=== PATIENT | female | born 1985 | race Caucasian/White ===

== ENCOUNTER → 2017-03-24 | Outpatient (CLI) | payer OTHER ==
[~2017-03-24] MED LIST: MULT-506 PO
== END | disposition home or self-care (01) ==
LOC: C.PAPS 08:30
PROVIDERS: ATTEND Obstetrics & Gynecology
DX: Z34.01 Encounter for supervision of normal first pregnancy, first trimester (principal)

== ENCOUNTER → 2017-03-24 | Outpatient (CLI) | payer OTHER ==
[2017-03-24 17:23] LABS: BASO % 0.2 %; BASO ABS # 0.02 K/uL (0-0.2); COMPLETE YES; EOS % 0.9 %; HEMATOCRIT 39.5 % (37-47); IG% 0.2 %; LYMPH % 23.8 %; LYMPH ABS # 2.63 K/uL (1.2-3.4); MEAN CELL VOLUME 83.3 fL (80-100); MEAN CORPUSCULAR HEMOGLOBIN 28.5 pg (25-34); MEAN CORPUSCULAR HGB CONC 34.2 g/dl (32-36); MEAN PLATELET VOLUME 11.1 fL (7.4-10.4); MONO % 4.5 %; NEUT % 70.4 %; PLATELET COUNT 304 K/uL (130-400); RED BLOOD COUNT 4.74 M/uL (4.2-5.4); WHITE BLOOD COUNT 11.06 K/uL (4.8-10.8)
== END | disposition home or self-care (01) ==
LOC: UNMERGE 16:32 → C.LAB1850 16:32 → MERGE 16:32
PROVIDERS: ATTEND Obstetrics & Gynecology
DX: Z34.00 Encounter for supervision of normal first pregnancy, unspecified trimester (principal)

== ENCOUNTER → 2017-03-24 | Outpatient (CLI) | payer OTHER ==
[2017-03-24 18:16] LABS: URINE APPEARANCE CLEAR (CLEAR); URINE BILIRUBIN NEG (NEG); URINE COLOR YELLOW; URINE NITRITE NEG (NEG); URINE SPECIFIC GRAVITY 1.006 (1.000-1.030); UROBILINOGEN NEG (NEG)
[2017-03-24 18:18] LABS: MANUAL MICROSCOPIC REQUIRED? NO; REVIEW REQ? NO
[2017-03-26 15:25] LABS: CHLAMYDIA TRACH RNA*** NOT DETECTED (NOT DETECTED); GC (NEIS GONORRHOEAE)RNA** NOT DETECTED (NOT DETECTED)
== END | disposition home or self-care (01) ==
LOC: C.LABSPEC 17:52 → UNMERGE 17:52 → MERGE 17:52
PROVIDERS: ATTEND Obstetrics & Gynecology
DX: Z34.00 Encounter for supervision of normal first pregnancy, unspecified trimester (principal)

== ENCOUNTER → 2017-05-04 | Outpatient (CLI) | payer OTHER ==
[2017-05-04 15:22] LABS: BASO % 0.1 %; BASO ABS # 0.01 K/uL (0-0.2); COMPLETE YES; EOS % 0.6 %; HEMATOCRIT 36.3 % (37-47); IG% 0.1 %; LYMPH % 23.7 %; LYMPH ABS # 1.93 K/uL (1.2-3.4); MEAN CELL VOLUME 84.4 fL (80-100); MEAN CORPUSCULAR HEMOGLOBIN 29.3 pg (25-34); MEAN CORPUSCULAR HGB CONC 34.7 g/dl (32-36); MEAN PLATELET VOLUME 10.8 fL (7.4-10.4); MONO % 5.8 %; NEUT % 69.7 %; PLATELET COUNT 265 K/uL (130-400); WHITE BLOOD COUNT 8.16 K/uL (4.8-10.8)
== END | disposition home or self-care (01) ==
LOC: C.LAB1850 13:45
PROVIDERS: ATTEND Obstetrics & Gynecology
DX: O02.1 Missed abortion (principal)

== ENCOUNTER → 2017-05-13 | Outpatient (CLI) | payer OTHER | END | disposition home or self-care (01) | LOC: C.LAB1850 16:19 | PROVIDERS: ATTEND Obstetrics & Gynecology | DX: O02.1 Missed abortion (principal) ==

== ENCOUNTER 2017-05-29 13:55 | Emergency (ER) | payer OTHER ==
[~2017-05-29] VITALS: Ht 154.9 cm; Wt 57.3 kg
[2017-05-29 13:57] VITALS: TEMP 36.9; Ht 154.9 cm; Wt 57.3 kg
[2017-05-29] MEDS ORDERED: SODIUM CHLORIDE 0.9% 1000ML 1,000 ML IV STA (14:10)
[2017-05-29 14:30] LABS: BASO % 0.1 %; BASO ABS # 0.01 K/uL (0-0.2); COMPLETE YES; EOS % 0.9 %; HEMATOCRIT 38.8 % (37-47); IG% 0.1 %; LYMPH % 24.2 %; LYMPH ABS # 2.14 K/uL (1.2-3.4); MEAN CELL VOLUME 84.3 fL (80-100); MEAN CORPUSCULAR HEMOGLOBIN 29.3 pg (25-34); MEAN CORPUSCULAR HGB CONC 34.8 g/dl (32-36); MEAN PLATELET VOLUME 10.6 fL (7.4-10.4); NEUT % 67.7 %; PLATELET COUNT 278 K/uL (130-400); WHITE BLOOD COUNT 8.86 K/uL (4.8-10.8)
[2017-05-29] MEDS ORDERED: MULT-506 PO (14:35)
[2017-05-29 14:45] LABS: BUN/CREATININE RATIO 11.3 (10-20); CALCIUM 9.3 mg/dl (8.5-10.1); CREATININE 0.73 mg/dl (0.60-1.20); POTASSIUM 3.9 mmol/L (3.5-5.1)
--- NOTE | 2017-05-29 16:11 | DIAGNOSTIC IMAGING REPORT ---
PELVIC COMPLETE NON OB HISTORY: 31 years-old Female abnormal vaginal bleeding COMPARISON: Pelvic ultrasound 19/01/2017 TECHNIQUE: Multiple real-time sonography images of the deep pelvic structures were obtained transabdominally and transvaginally assessing grayscale appearance, color and spectral flow. FINDINGS: TRANSABDOMINAL: Anteflexed uterus measures 8.4 x 3.9 x 4.5 cm. The endometrium is slightly heterogeneous, 1.0 cm in thickness. Right ovary measures 2.4 x 3.5 x 1.7 cm with normal arterial inflow documented. TRANSVAGINAL: Uterus measures 8.4 x 4.5 x 5.4 cm. There is an ill-defined slightly hypoechoic lesion of the posterior left fundal uterus, 1.8 x 1.5 x 1.8 cm suggesting intramural leiomyoma. The endometrium is heterogeneous measuring up to 1.3 cm. No definite some mucosal fibroid is seen. Nabothian cyst incidentally noted. Right ovary measures 3.1 x 1.5 x 3.1 cm with normal arterial inflow documented. Left ovary is also unremarkable, 3.3 x 1.8 x 2.5 cm with arterial inflow documented. No significant free pelvic fluid identified. IMPRESSION: 1. Normal sonographic appearance of the ovaries without evidence of torsion. 2. Heterogeneous appearance of a non-thickened endometrium suggests underlying endometrial cavity blood products. 3. Intramural leiomyoma in the fundal uterus is seen measuring up to 1.8 cm. The above report was generated using voice recognition software. It may contain grammatical, syntax or spelling errors. Electronically signed by: Steve Marquez M.D. 05/29/2017 4:09 PM Dictated Date/Time: 05/29/2017 4:05 PM
[2017-05-29 17:20] VITALS: BP 111/69; PULSE 75; O2SAT 99
--- NOTE | 2017-05-29 17:22 | EMERGENCY ROOM VISIT NOTE ---
History First contact with patient: 14:00 Chief Complaint: ED VAG BLEEDING Stated Complaint: VAGINAL BLEEDING S/P MISCARRIAGE History of Present Illness The patient is a 31 year old female who presents to the Emergency Room with complaints of excessive vaginal bleeding. The patient states that she had a miscarriage one month ago. She is followed by mindy Riojas [facility]. She was placed on Cytotec. She had one round by mouth and then one round vaginally. States she states that she had excessive vaginal bleeding for 2 weeks followed by one week of light bleeding. Then today at 1 PM she felt a "gush" coming from her vagina and went to the bathroom and there was a large amount of bright red blood along with some clots. She states she inserted a tampon and the reoccurrence happened twice more. She contacted her [facility] and was told to come here. The patient does admit that she has had 2 ultrasounds since the miscarriage. She states on the second ultrasound they told her there was just endometrial thickening but did not see any additional contained material which they saw on the first one. She has been getting serial beta hCG she thinks her last one on was in the 160s. She denies any increased fatigue. The patient states she has not been sexually active since the miscarriage. Review of Systems 6 system review was performed and was negative unless stated otherwise in history of present illness. Social History Smoking Status: Never Smoker Current/Historical Medications Scheduled Multivitamin (Multivitamin), 1 TAB PO DAILY Physical Exam Vital Signs Date Time Temp Pulse Resp B/P (MAP) Pulse Ox O2 Delivery O2 Flow Rate FiO2 05/29/17 16:00 67 12 99/70 99 Room Air 05/29/17 13:57 36.9 84 18 137/89 98 Room Air Physical Exam GENERAL: 31-year-old white female appears in no acute distress. MENTAL Status: Alert and oriented 3. EYES: Conjunctiva slightly pale. MOUTH: Mucosa is moist NECK: Supple, no lymphadenopathy noted. No carotid bruits noted. LUNGS: Clear auscultation without wheezes rales or rhonchi. CARDIAC: Regular rate and rhythm without murmur. Pulses is full and equal throughout. BACK: No CVA tenderness noted. ABDOMEN: Positive bowel sounds all 4 quadrants. Soft, nontender to palpation without organomegaly or masses. EXTREMITIES: No cyanosis or edema noted. Medical Decision & Procedures ER Provider Diagnostic Interpretation: PELVIC COMPLETE NON OB HISTORY: 31 years-old Female abnormal vaginal bleeding COMPARISON: Pelvic ultrasound 19/01/2017 TECHNIQUE: Multiple real-time sonography images of the deep pelvic structures were obtained transabdominally and transvaginally assessing grayscale appearance, color and spectral flow. FINDINGS: TRANSABDOMINAL: Anteflexed uterus measures 8.4 x 3.9 x 4.5 cm. The endometrium is slightly heterogeneous, 1.0 cm in thickness. Right ovary measures 2.4 x 3.5 x 1.7 cm with normal arterial inflow documented. TRANSVAGINAL: Uterus measures 8.4 x 4.5 x 5.4 cm. There is an ill-defined slightly hypoechoic lesion of the posterior left fundal uterus, 1.8 x 1.5 x 1.8 cm suggesting intramural leiomyoma. The endometrium is heterogeneous measuring up to 1.3 cm. No definite some mucosal fibroid is seen. Nabothian cyst incidentally noted. Right ovary measures 3.1 x 1.5 x 3.1 cm with normal arterial inflow documented. Left ovary is also unremarkable, 3.3 x 1.8 x 2.5 cm with arterial inflow documented. No significant free pelvic fluid identified. IMPRESSION: 1. Normal sonographic appearance of the ovaries without evidence of torsion. 2. Heterogeneous appearance of a non-thickened endometrium suggests underlying endometrial cavity blood products. 3. Intramural leiomyoma in the fundal uterus is seen measuring up to 1.8 cm. The above report was generated using voice recognition software. It may contain grammatical, syntax or spelling errors. Electronically signed by: Steve Marquez M.D. 05/29/2017 4:09 PM Dictated Date/Time: 05/29/2017 4:05 PM Laboratory Results 05/29/17 14:20 Red Blood Count 4.60, Mean Corpuscular Volume 84.3, Mean Corpuscular Hemoglobin 29.3, Mean Corpuscular Hemoglobin Concent 34.8, Mean Platelet Volume 10.6, Neutrophils (%) (Auto) 67.7, Lymphocytes (%) (Auto) 24.2, Monocytes (%) (Auto) 7.0, Eosinophils (%) (Auto) 0.9, Basophils (%) (Auto) 0.1, Neutrophils # (Auto) 6.00, Lymphocytes # (Auto) 2.14, Monocytes # (Auto) 0.62, Eosinophils # (Auto) 0.08, Basophils # (Auto) 0.01 05/29/17 14:20 Test 05/29/17 14:20 White Blood Count 8.86 K/uL (4.8-10.8) Red Blood Count 4.60 M/uL (4.2-5.4) Hemoglobin 13.5 g/dL (12.0-16.0) Hematocrit 38.8 % (37-47) Mean Corpuscular Volume 84.3 fL (80-100) Mean Corpuscular Hemoglobin 29.3 pg (25-34) Mean Corpuscular Hemoglobin Concent 34.8 g/dl (32-36) Platelet Count 278 K/uL (130-400) Mean Platelet Volume 10.6 fL (7.4-10.4) Neutrophils (%) (Auto) 67.7 % Lymphocytes (%) (Auto) 24.2 % Monocytes (%) (Auto) 7.0 % Eosinophils (%) (Auto) 0.9 % Basophils (%) (Auto) 0.1 % Neutrophils # (Auto) 6.00 K/uL (1.4-6.5) Lymphocytes # (Auto) 2.14 K/uL (1.2-3.4) Monocytes # (Auto) 0.62 K/uL (0.11-0.59) Eosinophils # (Auto) 0.08 K/uL (0-0.5) Basophils # (Auto) 0.01 K/uL (0-0.2) RDW Standard Deviation 35.7 fL (36.4-46.3) RDW Coefficient of Variation 11.6 % (11.5-14.5) Immature Granulocyte % (Auto) 0.1 % Immature Granulocyte # (Auto) 0.01 K/uL (0.00-0.02) Anion Gap 5.0 mmol/L (3-11) Est Creatinine Clear Calc Drug Dose 83.4 ml/min Estimated GFR () 126.3 Estimated GFR (Non- 109.0 BUN/Creatinine Ratio 11.3 (10-20) Calcium Level 9.3 mg/dl (8.5-10.1) Human Chorionic Gonadotropin, Quant 69 mIU/mL Medications Administered Medications (Trade) Dose Ordered Sig/Izabel Route Start Time Stop Time Status Last Admin Dose Admin Sodium Chloride 1,000 ml @ 999 mls/hr Q1H1M STAT IV 05/29/17 14:10 05/29/17 15:10 DC 05/29/17 14:22 999 MLS/HR ED Course The patient was evaluated. The patient's EMR medication list were reviewed. IV access was obtained. The patient was given 1 L normal saline wide-open. CBC and differential, renal profile, quantitative beta hCG was ordered and was now in the 60s therefore it is dropping appropriately. Hemoglobin and hematocrit were normal.. Pelvic ultrasound was ordered by the radiologist as above without any evidence of retained products.. [facility]. [facility] stated they could not rule out retained products of conception. The patient was informed of all findings. I consulted [facility] and they stated since her hemoglobin and hematocrit(were stable, quantitative beta hCG was dropping and ultrasound was fine she could be discharged home. Patient was in agreement with treatment plan. The patient will continue to get weekly quantitative beta hCGs. The patient was discharged home in stable condition. Medical Decision Differential diagnosis include retained products of conception, normal menses, endometriosis Impression Primary Impression: Episode of heavy vaginal bleeding Departure Information Dispostion Home / Self-Care Condition GOOD Referrals No Doctor, Assigned (PCP) Forms HOME CARE DOCUMENTATION FORM, IMPORTANT VISIT INFORMATION, WORK / SCHOOL INSTRUCTIONS Patient Instructions [facility] Additional Instructions Continue weekly beta hCGs. If the headache vaginal bleeding persists past 2-3 days or if things worsen, follow-up with [facility].
== END 2017-05-29 17:28 | disposition home or self-care (01) ==
LOC: C.EDB 13:58 → C.EDA 17:28
DX: N93.9 Abnormal uterine and vaginal bleeding, unspecified (principal)

== ENCOUNTER → 2017-07-03 | Outpatient (CLI) | payer OTHER | END | disposition home or self-care (01) | LOC: C.LAB1850 08:10 | PROVIDERS: ATTEND Obstetrics & Gynecology | DX: O02.1 Missed abortion (principal); Z3A.00 Weeks of gestation of pregnancy not specified ==

== ENCOUNTER 2019-06-18 03:51 | Inpatient (IN) ==
[2019-06-18] MEDS ORDERED: SODIUM CHLORIDE 0.9% 250 ML IV PRN (05:01)
--- NOTE | 2019-06-18 05:09 | Anesthesiology Consultation ---
Date of Service June 18, 2019 Assessment & Plan Chart Review Chart Review: Acceptable Risk for Surgery and Patient NOT seen in Pre Admission Testing Consults Requested none ASA ASA2E Proposed Anesthesia Anesthesia Type: General Risk / Benefits Reviewed With: PT / POA / Parent / Guardian, Accepts Plan and Informed Consent Obtained History Height/Weight Height: 5 ft 1.5 in Weight: 67.132 kg Allergies Allergy/AdvReac Type Severity Reaction Status Date / Time No Known Allergies Allergy Verified 06/18/19 04:35 Medications Home Medications Medication Instructions Recorded Confirmed Last Taken Vitamin 1 tab PO DAILY 06/18/19 06/18/19 06/17/19 08:00 Past Medical History Medical History H/O varicella Past Family History Family History Mother Colorectal cancer Stomach cancer Other Gestational diabetes Schizophrenia Past Surgical History Surgical History History of esophagogastroduodenoscopy History of lithotripsy History of oral surgery S/P colonoscopy S/P parathyroidectomy Social History Smoking Status: Never smoker Hx Alcohol Use: No Hx Substance Use: No substance use type: does not use Physical Exam Vital Signs Last Vital Signs Temp 37.1 C 06/18/19 04:16 Pulse 90 06/18/19 04:47 Resp 18 06/18/19 04:21 BP 125/83 06/18/19 04:47
[2019-06-18] MEDS ORDERED: CEFAZOLIN 2000MG 2,000 MG/15 ML SYR IV STA (05:10)
[2019-06-18] MEDS ORDERED: CITRIC ACID/SODIUM CITRATE 15 ML UDC PO STA (05:10)
[2019-06-18] MEDS ORDERED: LACTATED RINGER'S 1,000 ML IV SCH ×3 (05:15→07:25)
--- NOTE | 2019-06-18 05:17 | History & Physical Report ---
Date of Service June 18, 2019 Assessment & Plan (1) Hemorrhage affecting in third trimester: While the heart rate tracing is category 1, the examination is consistent with active bleeding from the placenta. This would be consistent with a low-lying placenta that was seen on ultrasound throughout the . Because of the active bleeding, I do not believe a vaginal delivery is prudent and a section is recommended. The patient will be typed and crossed for 2 units of packed red blood cells. Pediatrics and anesthesia have been notified. The risks, benefits, and alternatives to the surgery have been discussed. All the benefits will be delivery of the infant, the risks of bleeding, infection, inadvertent injury to bowel or bladder, need for transfusion, the need for readmission, with a possible need for reoperation. All questions answered of the patient. The permit has been signed, and she wishes to proceed. Present on Admission?: Yes History of Present Illness Chief Complaint: The patient is a 33-year-old 2 para 0 with an EDC of 22 June by first trimester ultrasound at 39+ weeks gestational age who presents to labor and delivery for evaluation of vaginal bleeding. The patient states that she was awoken by the bleeding and passing some small clots at home. She noted some mild lower abdominal cramping. Patient had a similar episode of bleeding approximately a week ago which resolved spontaneously after just 1 hour. The patient's course is remarkable for a low-lying placenta. This was diagnosed at her anatomy ultrasound at 20 weeks gestational age. The ultrasound showed the placenta to be posterior but extending to the internal loss. She had a repeat scan at 32 weeks which continued to show a low-lying placenta, but her 36-week scan showed the placenta to be 2.1 cm from the office. Prior to last week in this evening's occurrence the patient has had no previous vaginal bleeding. Laboratory values for this show blood type of AB+, antibody negative, rubella immune, hepatitis B negative, she had negative cell free DNA screening, negative maternal serum AFP, and a negative third trimester beta strep culture Primary Care Provider: NO PCP Allergies Allergy/AdvReac Type Severity Reaction Status Date / Time No Known Allergies Allergy Verified 06/18/19 04:35 Home Medications Home Medications Medication Instructions Recorded Confirmed Type Vitamin 1 tab PO DAILY 06/18/19 06/18/19 History Patient History Medical History H/O varicella Surgical History History of esophagogastroduodenoscopy History of lithotripsy History of oral surgery S/P colonoscopy S/P parathyroidectomy Family History Mother Colorectal cancer Stomach cancer Other Gestational diabetes Schizophrenia Social History Preferred Language: Tamazight Communication Ability: Effective Station Cook Required: No Beliefs That Will Affect Care: None marital status: Current Living Situation: Spouse Other Information That Helps Us Care for You: No Feels Safe at Home: Yes Safety Concerns: Feels Safe At This Time Smoking Status: Never smoker Hx Alcohol Use: No Hx Substance Use: No Physical Exam Constitutional: WD/WN, vitals as above Respiratory: Auscultation: lungs clear to auscultation bilaterally Cardiovascular: RRR, no murmur, no edema Extremities: no calf tenderness Gastrointestinal (Abdomen): Gravid, vtx, (+) FHT's, mild palpable ctx's, EFW 7 1/2 lbs Genitourinary: SSE: Vaginal vault with blood and a 4 cm clot, digital exam deferred Results & Data Vital Signs (Past 12 Hours) Vital Signs Temp Pulse Resp BP 06/18/19 04:47 90 125/83 06/18/19 04:36 96 H 131/90 06/18/19 04:27 96 H 123/90 06/18/19 04:21 18 06/18/19 04:16 98.8 F 93 H 18 132/90 Code Status & VTE Plan VTE Prophylaxis Plan VTE Prophylaxis will be ordered: Yes Monitoring External Monitor Cat I
[2019-06-18] MEDS ORDERED: MoRPHine SULFATE PF 1 MG/ML 10 ML AMP/VIAL ONE (05:23)
[2019-06-18 05:25] LABS: Basophils # (auto) 0.02 K/uL (0-0.2); Basophils % (auto) 0.2 %; Eosinophils # (auto) 0.05 K/uL (0-0.5); Eosinophils % (auto) 0.5 %; Hematocrit (blood only) 38.6 % (37-47); Hemoglobin 13.5 g/dL (12.0-16.0); Immature Granulocytes # (auto) 0.05 K/uL (0.00-0.02); Immature Granulocytes % (auto) 0.5 %; Lymphocytes # (auto) 1.72 K/uL (1.2-3.4); Lymphocytes % (auto) 16.6 %; Mean Corpuscular Hemoglobin 29.7 pg (25-34); Mean Platelet Volume 11.2 fL (7.4-10.4); Monocytes # (auto) 0.68 K/uL (0.11-0.59); Monocytes % (auto) 6.6 %; Neutrophils # (auto) 7.86 K/uL (1.4-6.5); Neutrophils % (auto) 75.6 %; Platelet Count 190 K/uL (130-400); RDW Coefficient of Variation 12.3 % (11.5-14.5); RDW Standard Deviation 37.9 fL (36.4-46.3); Red Blood Count 4.54 M/uL (4.2-5.4); White Blood Count 10.38 K/uL (4.8-10.8)
--- NOTE | 2019-06-18 06:30 | Post Operative Brief Note ---
PG Immediate Post Op with CF Date of Surgery June 18, 2019 Pre & Post Diagnosis Operation Date: 06/18/19 05:30 <No data on this case meets the specified criteria> Procedure Operation Date: 06/18/19 05:30 <No data on this case meets the specified criteria> Surgeon Saúl Lee Jr, MD, FACOG
[2019-06-18] MEDS ORDERED: OXYTOCIN 10 UNITS/ML VIAL ONE (06:31)
[2019-06-18] MEDS ORDERED: PHENYLEPHRINE HCL 10 MG/ML VIAL ONE (06:31)
--- NOTE | 2019-06-18 06:33 | Post Operative Brief Note ---
PG Immediate Post Op with CF Date of Surgery June 18, 2019 Pre & Post Diagnosis Operation Date: 06/18/19 05:30 Pre-Op Diagnosis: 1) Term 2) Known low-lying posterior placenta 3) Active vaginal bleeding Post-Op Diagnosis: Same Procedure Operation Date: 06/18/19 05:30 <No data on this case meets the specified criteria> Surgeon Saúl Lee Jr, MD, FACOG [employer] Representative Litzy Abreu Estimated Blood Loss 800 Findings See Below (viable female, Apgars 9/9, weight 7lbs 4 ozs, gasses pending, low lying posterior placenta, normal appearing tubes and ovaries bilaterally) Specimens Specimen Description: 1. Placenta - exam 2. Cord blood 3. Venous cord gas 4. Arterial cord gas
[2019-06-18] MEDS ORDERED: MoRPHine SULFATE PF 1 MG/ML 10 ML AMP/VIAL INT SPINAL ONE (06:41)
[2019-06-18] MEDS ORDERED: NALOXONE HCL 1 MG in SODIUM CHLORIDE 0.9% 1000ML 1,000 ML IV PRN (06:41)
[2019-06-18] MEDS ORDERED: NALOXONE HCL 0.08 MG in SYRINGE 1.8 ML IV PRN (06:41)
[2019-06-18] MEDS ORDERED: LACTATED RINGER'S 500 ML IV PRN (06:41)
[2019-06-18] MEDS ORDERED: NALOXONE HCL 0.4 MG/1 ML VIAL/CARP IV PRN (06:41)
[2019-06-18] MEDS ORDERED: ONDANSETRON INJ 2 MG/ML 2 ML VIAL IV PRN (06:41)
[2019-06-18] MEDS ORDERED: METOCLOPRAMIDE HCL 20 MG in SODIUM CHLORIDE 0.9% 50 ML IV PRN (06:41)
[2019-06-18] MEDS ORDERED: ePHEDrine sulfate 50 MG/ML AMP IV PRN (06:41)
[2019-06-18] MEDS ORDERED: MoRPHine SULFATE 2 MG/ML CARP IV PRN (06:41)
[2019-06-18] MEDS ORDERED: PROMETHAZINE HCL 25 MG in SODIUM CHLORIDE 0.9% 50 ML IV PRN (06:41)
[2019-06-18] MEDS ORDERED: DiphenhydrAMINE HCL 50 MG/ML VIAL IV PRN (06:41)
[2019-06-18] MEDS ORDERED: HYDROmorphone INJ 0.5 MG/0.5 ML SYR IV PRN (06:41)
[2019-06-18] MEDS ORDERED: NALBUPHINE HCL INJ 10 MG/ML AMP IV PRN (06:41)
[2019-06-18] MEDS ORDERED: MEPERIDINE HCL 25 MG/ML CARP IV PRN (06:41)
[2019-06-18] MEDS ORDERED: SODIUM CHLORIDE 0.9% 1000ML 1,000 ML IV SCH (06:45)
[2019-06-18] MEDS ORDERED: NO NARCOTICS OR SEDATIVES SCH (06:45)
[2019-06-18] MEDS ORDERED: CARBOPROST TROMETHAMINE 250 MCG/ML AMPUL IM ONE (06:46)
[2019-06-18 06:52] LABS: Base Excess Cord Arterial Bld -2.5 mEq/L (-9-1.8); CO2 Cord Arterial Blood 49 mmHg (39.1-73.5); HCO3 Cord Arterial Blood 24 mmol/L (19.7-28.5); PO2 Cord Arterial Blood 19.8 % (4.1-31.7); pH Cord Arterial Blood 7.31 (7.1-7.38)
[2019-06-18 06:58] LABS: Base Excess Cord Venous Blood -1.5 mEq/L (-7.7-1.9); Cord Venous Blood HCO3 24 mmol/L (18.4-26.8); Cord Venous Blood PCO2 42 mmHg (30.4-57.2); Cord Venous Blood PO2 21 mmHg (14.1-43.3); Cord Venous Blood pH 7.37 (7.20-7.44)
[2019-06-18 06:59] LABS: Oxygen Sat Cord Arterial Blood < 60.0 % (<60)
[2019-06-18 07:00] LABS: O2 Saturation Cord Venous Bld < 60.0 % (<68)
--- NOTE | 2019-06-18 07:18 | Anesthesiology Progress Note ---
Date of Service June 18, 2019 Anesthesia Post Procedure Vital Signs Vital Signs: Temp Pulse Resp BP Pulse Ox 06/18/19 07:16 90 98 06/18/19 07:12 86 93 06/18/19 07:11 85 99 06/18/19 07:06 81 99 06/18/19 07:04 74 101/64 06/18/19 07:01 73 100 06/18/19 06:56 81 98 06/18/19 06:52 81 18 105/68 06/18/19 06:51 78 100 06/18/19 06:46 84 100 06/18/19 06:42 36.0 C L 96 H 16 106/68 06/18/19 06:41 93 H 98 06/18/19 05:13 98 H 143/94 H 06/18/19 04:47 90 125/83 06/18/19 04:36 96 H 131/90 06/18/19 04:27 96 H 123/90 06/18/19 04:21 18 06/18/19 04:16 37.1 C 93 H 18 132/90 Transfer of Care Handoff Completed per policy Notes Mental Status: alert / awake / arousable and participated in evaluation Patient Amnestic to Procedure: Yes Nausea / Vomiting: adequately controlled Pain: adequately controlled Airway Patency, RR, SpO2: stable & adequate BP & HR: stable & adequate Hydration State: stable & adequate Neuraxial Anesthesia: was administered and sensory block is resolving Anesthetic Complications: no major complications apparent
[2019-06-18] MEDS ORDERED: DIPHTHERIA/TETANUS/PERTUSSIS 0.5 ML SYR/VIAL IM ONE (07:25)
[2019-06-18] MEDS ORDERED: BENZOCAINE 20% AER SPR 82.5 GM CAN EXT PRN (07:25)
[2019-06-18] MEDS ORDERED: SUPERCREAM 0.870% 15 GM JAR EXT PRN (07:25)
[2019-06-18] MEDS ORDERED: HYDROCORTISONE ACETATE 25 MG SUPP PR PRN (07:25)
[2019-06-18] MEDS ORDERED: MEASLES, MUMPS & RUBELLA VIRUS VIAL SQ ONE (07:25)
[2019-06-18] MEDS: KETOROLAC 30 MG/ML VIAL IV PRN ×3 (08:16→23:36)
[2019-06-18] MEDS: OXYTOCIN 20 UNITS in LACTATED RINGER'S 1,000 ML IV SCH ×2 (08:19→17:07)
[2019-06-18] MEDS ORDERED: NON-FORMULARY MEDICATION (Prenatal Vitamin 1 TAB) PO SCH (09:00)
--- NOTE | 2019-06-18 09:14 | Operative Report ---
DATE OF OPERATION: 06/18/2019 PREOPERATIVE DIAGNOSES: 1. Term . 2. Posterior low lying placenta. 3. Active vaginal bleeding. POSTOPERATIVE DIAGNOSES: 1. Term . 2. Posterior low lying placenta. 3. Active vaginal bleeding. PROCEDURE PERFORMED: Primary low cervical transverse section. SURGEON: Dr. Lee. JAMMER HOOKER: Dr. Ana Maria Abreu. ANESTHESIA: Spinal. FINDINGS: Viable female with Apgars of 9 and 9 and weight of 7 pounds 4 ounces. Posterior low lying placenta sent for pathological evaluation. Cord gases pending. Normal appearing tubes and ovaries bilaterally. PROCEDURE IN DETAIL: The patient was taken to the Operating Room and after spinal anesthesia, was placed in supine position, draped and prepped in the usual fashion. Pfannenstiel type incision was made. Underlying subcutaneous tissue was dissected down to the ventral abdominal fascia, which was nicked and opened in a horizontal manner. Preperitoneal fascia was dissected away until the peritoneal cavity was entered and opened in a vertical manner. Bladder blade was placed and the peritoneum overlying the uterus was opened and in a semi-lunar fashion, the inferior margin which was taken down creating the bladder flap. The uterus was entered sharply and extended in a semilunar fashion manually. Viable female infant was delivered. Cord was clamped and cut and the baby was passed off to pediatrics, who was in attendance for the delivery. Cord gases and cord blood samples were obtained. The low-lying posterior placenta was delivered spontaneously through the incision and sent for pathological evaluation. The uterus was then exteriorized. The uterine incision was closed with 2 layers of 4-0 Vicryl, the first a running locking stitch, the second an imbricating stitch. Hemostasis was achieved and the uterus was returned to the pelvic cavity. The pericolic gutters were cleared bilaterally of any blood tissue and/or clot. The uterine incision was inspected again for hemostasis, which was present. Sponge and needle count was correct. The rectus muscle was then plicated in the midline with a running 2-0 Vicryl suture. The fascia was closed laterally with a running 0 Vicryl suture. Subcutaneous tissue was irrigated with warm saline and the skin incision was closed with 4-0 Monocryl suture. Sterile dressing was applied. The patient was taken to the Recovery Room in satisfactory condition. I attest to the content of the Intraoperative Record and any orders documented therein. Any exception s are noted below.
[2019-06-18] MEDS: SIMETHICONE 80 MG CHEW PO SCH ×3 (15:12→20:20)
[2019-06-19] MEDS ORDERED: ONDANSETRON INJ 2 MG/ML 2 ML VIAL IV PRN (00:41)
[2019-06-19] MEDS ORDERED: KETOROLAC 30 MG/ML VIAL IV PRN (00:41)
[2019-06-19] MEDS ORDERED: DC INTRASPINAL MORPHINE ONE (00:41)
[2019-06-19] MEDS ORDERED: OXYCODONE/ACETAMINOPHEN 5mg/325mg TAB PO PRN (00:41)
[2019-06-19] MEDS ORDERED: DiphenhydrAMINE HCL 50 MG/ML VIAL IV PRN (00:41)
[2019-06-19 07:24] LABS: Hematocrit (blood only) 29.3 % (37-47); Hemoglobin 10.1 g/dL (12.0-16.0); Mean Corpuscular Hemoglobin 29.7 pg (25-34); Mean Corpuscular Hgb Conc 34.5 g/dL (32-36); Mean Corpuscular Volume 86.2 fL (80-100); Mean Platelet Volume 11.3 fL (7.4-10.4); Platelet Count 153 K/uL (130-400); RDW Coefficient of Variation 12.3 % (11.5-14.5); RDW Standard Deviation 38.3 fL (36.4-46.3); White Blood Count 12.05 K/uL (4.8-10.8)
[2019-06-19 07:26] LABS: Basophils # (auto) 0.01 K/uL (0-0.2); Basophils % (auto) 0.1 %; Eosinophils # (auto) 0.02 K/uL (0-0.5); Eosinophils % (auto) 0.2 %; Immature Granulocytes # (auto) 0.02 K/uL (0.00-0.02); Immature Granulocytes % (auto) 0.2 %; Lymphocytes # (auto) 1.41 K/uL (1.2-3.4); Lymphocytes % (auto) 11.7 %; Monocytes # (auto) 0.89 K/uL (0.11-0.59); Monocytes % (auto) 7.4 %; Neutrophils % (auto) 80.4 %
--- NOTE | 2019-06-19 08:40 | Obstetrical Progress Note ---
Date of Service June 19, 2019 Assessment & Plan (1) Status post primary low transverse section: doing very well post-op. continue current care plan. Present on Admission?: No Day #:: 1 Subjective Ambulation: ambulating normally Voiding: no voiding problems Passing Gas:: Yes Diet Tolerance:: regular diet Lochia:: Small Feeding Type:: breast feeding Review of Systems All systems reviewed & are unremarkable except as noted in HPI & below Physical Exam Constitutional WD/WN, vitals as above Cardiovascular Extremities: no calf tenderness Gastrointestinal (Abdomen) normal bowel sounds, soft, nontender, no hepatosplenomegaly Inspection/Auscultation: + abdominal surgical incision (intact, dry & no cellulitis) Psychiatric A+Ox3, euthymic affect Genitourinary OB Exam Abdomen: + fundal height Fundus: + firm and + relation to umbilicus (1 below U) Results & Data Vital Signs (Past 12 Hours) Vital Signs Temp Pulse Resp BP Pulse Ox 06/19/19 04:45 97.9 F 90 18 98/59 L 06/19/19 00:40 18 97 06/19/19 00:00 18 97 06/18/19 23:30 99.3 F 100 H 18 110/77 97 06/18/19 23:00 18 97 06/18/19 22:00 16 96 06/18/19 21:00 16 97
[2019-06-19] MEDS: PRENATAL VITAMIN 1 TAB PO SCH ×2 (08:55→13:54)
[2019-06-19] MEDS: FERROUS SULFATE 325 MG TAB PO SCH ×2 (08:55→13:55)
[2019-06-19] MEDS: SIMETHICONE 80 MG CHEW PO SCH ×5 (08:55→20:17)
--- NOTE | 2019-06-19 09:04 | Anesthesiology Progress Note ---
Date of Service June 19, 2019 Anesthesia Post Procedure Vital Signs Vital Signs: Temp Pulse Resp BP Pulse Ox 06/19/19 04:45 36.6 C 90 18 98/59 L 06/19/19 00:40 18 97 06/19/19 00:00 18 97 06/18/19 23:30 37.4 C 100 H 18 110/77 97 06/18/19 23:00 18 97 06/18/19 22:00 16 96 06/18/19 21:00 16 97 06/18/19 20:20 36.8 C 92 H 18 104/69 96 06/18/19 20:00 18 96 06/18/19 19:00 18 96 06/18/19 18:30 18 97 06/18/19 17:30 16 97 06/18/19 16:05 36.7 C 80 16 102/72 98 06/18/19 15:30 16 99 06/18/19 14:30 18 98 06/18/19 13:30 18 97 06/18/19 12:30 16 99 06/18/19 11:30 36.5 C 75 16 110/73 99 06/18/19 10:15 18 97 06/18/19 09:35 36.7 C 81 16 107/68 99 Pain Intensity Bilateral Abdomen: Pain Intensity: 1 Transfer of Care Handoff Completed per policy Notes Mental Status: alert / awake / arousable Patient Amnestic to Procedure: Yes Nausea / Vomiting: adequately controlled Pain: adequately controlled Airway Patency, RR, SpO2: stable & adequate BP & HR: stable & adequate Hydration State: stable & adequate Anesthetic Complications: no major complications apparent and Pt Satisfied with anesthetic care
[2019-06-19] MEDS: IBUPROFEN 600 MG TAB PO PRN ×3 (09:29→20:32)
[2019-06-19] MEDS ORDERED: MAGNESIUM HYDROXIDE SUSP 30 ML UDC PO SCH (21:00)
[2019-06-19] MEDS ORDERED: SENNA 8.6 MG TAB PO SCH (21:00)
--- NOTE | 2019-06-20 06:03 | Obstetrical Progress Note ---
Date of Service <Martina Butler MD - Last Filed: 06/20/19 06:46> June 20, 2019 Assessment & Plan <Martina Butler MD - Last Filed: 06/20/19 06:46> (1) Status post repeat low transverse section: Fabiola is a 33 yo on POD 2 after C/S for a low lying placenta. - GBS -, Blood Type AB+, Rubella immune -Vitals reviewed and WNL -Hemoglobin reviewed: 13.5 on admission, down to 10.1 on 06/19 -patient is doing clinically well encourage ambulation, provide analgesia as needed, monitor lochia; working towards discharge goals - After discharge will have [address] Lee. Subjective <Martina Butler MD - Last Filed: 06/20/19 06:46> Ambulation: ambulating normally Voiding: no voiding problems Passing Gas:: Yes Diet Tolerance:: regular diet Lochia:: Small Feeding Type:: breast feeding Current Pain Level(1-10): 1 examined at bedside Constitutional: no fever, no chills and no sweats Eyes: no worsening vision Respiratory: no cough and no dyspnea Cardiovascular: no chest pain, no palpitations, no edema and no calf pain Breast: no breast pain Gastrointestinal: no nausea and no vomiting Genitourinary (female): no dysuria and no urinary frequency Neurologic: no headache(s) Physical Exam <Martina Butler MD - Last Filed: 06/20/19 06:46> Constitutional WD/WN, vitals as above no acute distress Respiratory normal respiratory effort, lungs clear to auscultation does not use accessory muscles Auscultation: no crackles, no rales, no rhonchi, no wheezes and no pleural rub Cardiovascular Rate/Rhythm: regular rate and regular rhythm Heart Sounds: normal S1 and normal S2; no gallop, no murmur and no cardiac rub Extremities: no calf tenderness and no pedal edema Gastrointestinal (Abdomen) Inspection/Auscultation: normal bowel sounds; abdomen not distended Percussion/Palpation: abdomen soft Genitourinary Uterus: fundus firm, palpable 1 cm below the uterus Incision site: clean, dry and intact; no warmth, erythema, or discharge. Appropriate post-op tenderness. Results & Data <Martina Butler MD - Last Filed: 06/20/19 06:46> Vital Signs (Past 12 Hours) Vital Signs Temp Pulse Resp BP 06/20/19 00:00 37.2 C 91 H 18 105/66 <Ana Maria Fitzgerald MD, FACOG - Last Filed: 06/20/19 08:12> Co-Signing Physician Notes Resident Physician Supervision Note: I interviewed and examined the patient. Discussed with Dr. Butler and agree with findings and plan as documented in the note. Any exceptions or clarifications are listed here: Patient wishes to be discharged. Scripts for Percocet & Motrin sent to pharmacy. follow up in 6 weeks. Documented By: Ana Maria Fitzgerald MD, FACOG
[2019-06-20 07:07] LABS: Hematocrit (blood only) 30.5 % (37-47); Hemoglobin 10.4 g/dL (12.0-16.0)
[2019-06-20] MEDS: SIMETHICONE 80 MG CHEW PO SCH ×2 (07:59→12:21)
[2019-06-20] MEDS: FERROUS SULFATE 325 MG TAB PO SCH (08:00)
[2019-06-20] MEDS: IBUPROFEN 600 MG TAB PO PRN (08:00)
[2019-06-20] MEDS: PRENATAL VITAMIN 1 TAB PO SCH (08:01)
--- NOTE | 2019-06-27 16:42 | Discharge Summary ---
Date of Service June 27, 2019 Admission HPI Per Admitting Provider Chief Complaint: The patient is a 33-year-old 2 para 0 with an EDC of 22 June by first trimester ultrasound at 39+ weeks gestational age who presents to labor and delivery for evaluation of vaginal bleeding. The patient states that she was awoken by the bleeding and passing some small clots at home. She noted some mild lower abdominal cramping. Patient had a similar episode of bleeding approximately a week ago which resolved spontaneously after just 1 hour. The patient's course is remarkable for a low-lying placenta. This was diagnosed at her anatomy ultrasound at 20 weeks gestational age. The ultrasound showed the placenta to be posterior but extending to the internal loss. She had a repeat scan at 32 weeks which continued to show a low-lying placenta, but her 36-week scan showed the placenta to be 2.1 cm from the office. Prior to last week in this evening's occurrence the patient has had no previous vaginal bleeding. Laboratory values for this show blood type of AB+, antibody negative, rubella immune, hepatitis B negative, she had negative cell free DNA screening, negative maternal serum AFP, and a negative third trimester beta strep culture Admission Exam (Per Admitting) Constitutional Constitutional: WD/WN, vitals as above Respiratory: Auscultation: lungs clear to auscultation bilaterally Cardiovascular: RRR, no murmur, no edema Extremities: no calf tenderness Gastrointestinal (Abdomen): Gravid, vtx, (+) FHT's, mild palpable ctx's, EFW 7 1/2 lbs Genitourinary: SSE: Vaginal vault with blood and a 4 cm clot, digital exam deferred V Discharge Data Consultations 06/18/19 05:01 Consult Anesthesiology Stat Procedures Performed Operation Date: 06/18/19 05:30 Actual Procedures p Section in LD(Not Applicable) - aSúl Lee Jr, MD, FACOG Hospital Course (1) Hemorrhage affecting in third trimester: While the heart rate tracing is category 1, the examination is consistent with active bleeding from the placenta. This would be consistent with a low-lying placenta that was seen on ultrasound throughout the . Because of the active bleeding, I do not believe a vaginal delivery is prudent and a section is recommended. The patient will be typed and crossed for 2 units of packed red blood cells. Pediatrics and anesthesia have been notified. The risks, benefits, and alternatives to the surgery have been discussed. All the benefits will be delivery of the infant, the risks of bleeding, infection, inadvertent injury to bowel or bladder, need for transfusion, the need for readmission, with a possible need for reoperation. All questions answered of the patient. The permit has been signed, and she wishes to proceed The patient was taken to the operating her mood she underwent the primary low cervical transverse section. Please see separate operative note for details. Postoperatively the patient did well she had a routine postoperative care was discharged home on postoperative day 2. Patient will follow up in 2 weeks time for postoperative check. Discharge Instructions ACTIVITY RECOMMENDATIONS: * Gradual return to full activity over the next 2-3 weeks. * No lifting - nothing heavier than baby over the next 2-3 weeks. * Do not engage in vigorous exercise, sexual activity or sports until cleared by your physician. * Do not drive or operate any motorized equipment until cleared by your physician. * You may shower/bathe daily. MEDICATIONS: For discomfort or pain, you may use Acetaminophen (Tylenol), Ibuprofen (Advil), or Naproxen (Aleve) following the package directions. For constipation you may use Colace following the package directions. BREAST CARE: If you are not breast feeding: * Wear a supportive bra 24 hours a day for one to two weeks. * Avoid stimulating your breasts and nipples as much as possible during the first few weeks after delivery. * When taking a shower, have the warm water hit your back, not breasts. * When your breasts feel full, apply ice packs. Usually three to four times a day helps ease the discomfort. * Take a mild pain medication (Tylenol / Motrin) when you are uncomfortable. If breast feeding: * Use breast milk to lubricate nipples. Lansinoh cream may be used for sore nipples. You do not need to remove cream prior to breast feeding. If using a different brand of cream, check the label for directions regarding removal of cream prior to nursing. * Wear a supportive bra. * If having problems with breasts or breast feeding, call a bus info consultant or your health care provider. SPECIAL CARE INSTRUCTIONS: When you are discharged from the hospital, it is important for you to follow the instructions listed below: * During the first week at home, you should be able to care for yourself and your baby. In addition, the usual light household activities are encouraged. * Limit your activities to the way you feel. Do not try to clean the house or move furniture. Be sensible. * If you actively engage in sports and have done so up until the time of your delivery, you may resume these activities as soon as you feel able. This may take up to one month or even longer. Use good judgment. * Continue to take your vitamins for at least six weeks after the of your baby. * Your diet need not be limited unless you were on a special diet before your delivery. Breast-feeding mothers need around 2500 calories per day and at least 64-80 ounces of fluid per day (8 to 10 glasses). * You should eat foods from the four major food groups. Crash diets or fad diets are to be avoided. Eating lean meats, fresh fruits and vegetables, low-fat dairy products, high fiber foods and a regular exercise program, will help you get back to your pre- weight without putting your health at risk. * Constipation is sometimes a problem after delivery. Take a mild laxative as needed. If breast feeding, Milk of Magnesia is acceptable to use. You may use a suppository or Fleets enema. * A daily shower or tub bath is suggested. Wash incision daily with warm soapy water and pat dry. It doesn't need to be covered unless drainage is present. * A bloody vaginal discharge will usually continue until around four weeks . A small amount of bleeding may continue for as long as six weeks. Vaginal discharge changes from the bright red bleeding after delivery to pink then brownish and finally yellowish-pink before becoming white and disappearing. * Bleeding may increase with activity. Your first period may come in 4-8 weeks. If you are breast feeding, your period may be delayed even longer. * [place] (sex) can begin whenever both you and your partner feel comfortable and do not have any form of genital infection. It is recommended that you wait at least six weeks for internal and external healing to occur. If you have questions, please talk to your health care practitioner. A condom should be used to prevent infection and . * Foreplay, gentle intercourse and lubrication is very important the first several times to prevent pain. A water-based lubricant such as K-Y jelly or Astroglide may be used. * If you have RH negative blood and your baby is RH positive, you will receive RHOGAM by injection prior to discharge. The nurse will give you a card to keep with you that has the date and place that you received RHOGAM after delivery. * During your care, you had a Rubella screen done to check for the presence of rubella antibodies in your blood. If your test was negative, you will receive a Rubella vaccine prior to discharge. This vaccine may cause a fever, soreness at the injection site and flu-like symptoms. If these symptoms persist, notify your health care practitioner. is not advised for one month after a Rubella vaccine. * Verbalizes understanding of car seat law as reviewed with patient nursing. * Car Seat hand-out given and reviewed with patient by nursing. * Shaken baby information reviewed with patient by nursing. Call you doctor if: * Heavy bleeding (saturating several pads an hour) or passing clots the size of your fist. * A fever >101 degrees F (38.3 degrees C) on two occasions four hours apart and/or chills. * Unusual pain in the pelvic or vaginal areas. * Call the doctor for any increased redness, drainage or swelling around the incision and any pain unrelieved by prescribed pain medication. * "Baby Blues" lasting longer than two weeks. If you have any questions or concerns, call your health care practitioner at . FOLLOW UP VISIT: * Please call the office at to schedule a 6 week examination. It is important you keep this appointment. It is important for you to make arrangements for either yearly or twice yearly check-ups thereafter.
== END 2019-06-20 15:48 | disposition home or self-care (01) | DRG 788 ==
LOC: OPB 03:51 → 4S1 03:54 → 4S2 09:42

== ENCOUNTER 2022-05-12 05:34 | Inpatient (IN) ==
--- NOTE | 2022-05-02 14:35 | Anesthesiology Consultation ---
Date of Service May 02, 2022 Assessment & Plan (1) Encounter for pre-operative examination: COVID screening: Per assessment on 05/02: No known COVID-19 positive contacts or current COVID-19 related symptoms. Travel screen negative. Patient vaccinated. Surgeon arranging preop COVID testing. Awaiting results. Chart Review Chart Review: medical charge entry specialist initiated History Surgery Operation Date: 05/12/22 07:30 Proposed Procedures p Section in LD (Delivery of Baby through Abdominal Incision) - Rome Bedoya MD, FACOG Height/Weight Height: 5 ft 1.5 in Weight: 68.039 kg Allergies Allergy/AdvReac Type Severity Reaction Status Date / Time No Known Allergies Allergy Verified 05/02/22 13:53 Medications Home Medications Medication Instructions Recorded Confirmed Last Taken famotidine 10 mg tablet 10 mg PO QAM 04/01/22 05/02/22 Unknown iron 40 mg capsule 45 mg PO QAM 05/02/22 05/02/22 Unknown prenat.vits,rober,brn-pxos-dnlow 1 tab PO QAM 05/02/22 05/02/22 Unknown Past Medical History Medical History GERD (gastroesophageal reflux disease) MILD History of kidney stones Seasonal allergies Past Family History Family History Mother Stomach cancer Colorectal cancer Father Dyslipidemia Hypertension Other Gestational diabetes No family history of adverse response to anesthesia Schizophrenia Past Surgical History Surgical History H/O parathyroidectomy D/T OVERPRODUCTION OF CALCIUM History of section X 1 History of colonoscopy History of esophagogastroduodenoscopy History of lithotripsy [place] teeth removed Social History Smoking Status: Never smoker Do You Dip or Chew Tobacco: No Hx Alcohol Use: No Alcohol type: beer alcohol intake frequency: a few times a month Hx Substance Use: No substance use type: does not use
--- NOTE | 2022-05-11 17:49 | History & Physical Report ---
Date of Service May 11, 2022 Assessment & Plan (1) Previous delivery affecting , antepartum: Plan: Repeat section. The patient was counseled to the nature of the procedure including alternatives such as labor. Risks were discussed including bleeding infection injury to bowel bladder ureter vessels and even baby. The risks of internal organ injury were discussed as being higher with prior sections. Deep Vein Thrombosis, pulmonary embolus and breakdown of the incision discussed. Deep vein thrombosis pulmonary embolus hernia and failure of the incision to heal were discussed Patient verbalized understanding of this and was given ample time to ask questions History of Present Illness Primary Care Provider: Geri Jauregui, Visit [facility] Calculator Estimated Delivery Date Method Current WG Current Estimate 05/13/22 Ultrasound #1 39w 1d Other Estimates 05/08/22 LMP (Certain) 39w 6d LMP: 08/01/21 : 5 Full term: 1 Premature: 0 Total Number of Induced Abortions: 0 Total Number of Spontaneous Abortions: 3 Ectopics: 0 Multiple births: 0 Number of Living Children: 1 and Delivery Plans AMA *Weekly NST's @ 36wks. Prior Section affecting *Desires rpt C/S SCHEDULED FOR 05/12/[address] COSTELLO Allergies Allergy/AdvReac Type Severity Reaction Status Date / Time No Known Allergies Allergy Verified 05/07/22 07:30 Home Medications Medication Instructions Recorded Confirmed Type famotidine 10 mg tablet 10 mg PO QAM 04/01/22 05/02/22 History iron 40 mg capsule 45 mg PO QAM 05/02/22 05/02/22 History prenat.vits,rober,svs-amuu-vcgqf 1 tab PO QAM 05/02/22 05/02/22 History Patient History Medical History GERD (gastroesophageal reflux disease) MILD History of kidney stones Seasonal allergies Surgical History H/O parathyroidectomy D/T OVERPRODUCTION OF CALCIUM History of section X 1 History of colonoscopy History of esophagogastroduodenoscopy History of lithotripsy [place] teeth removed Family History Mother Stomach cancer Colorectal cancer Father Dyslipidemia Hypertension Other Gestational diabetes No family history of adverse response to anesthesia Schizophrenia Social History Smoking Status: Never smoker Second Hand Exposure: No; Hx Alcohol Use: No Hx Substance Use: No Preferred Language: Malay Communication Ability: Effective Flight Nurse Required: No Beliefs That Will Affect Care: None marital status: marital status details: Wenceslao ([phone] Current Living Situation: Family Current Living Situation Comment: lvies with spouse and daughter, 1 dog. current occupational status: employed current occupation: PA @ [employer] Feels Safe at Home: Yes Assistive Devices: None Review of Systems as per Subjective / HPI Physical Exam Constitutional: WD/WN, vitals as above well developed and well nourished Respiratory: normal respiratory effort, lungs clear to auscultation normal respiratory effort Cardiovascular: RRR, no murmur, no edema Gastrointestinal (Abdomen): normal bowel sounds, soft, nontender, no hepatosplenomegaly Coding Level of Care Code None Diagnoses Previous delivery affecting , antepartum O34.219
[~2022-05-12 05:34] MED LIST changes: +LACTATED RINGER'S 1,000 ML IV SCH; -MULT-506 PO
[2022-05-12] MEDS ORDERED: ceFAZolin 2000MG 2,000 MG/15 ML SYR IV SCH (06:00)
[2022-05-12] MEDS ORDERED: CITRIC ACID/SODIUM CITRATE 15 ML UDC PO SCH (06:00)
[2022-05-12 06:15] LABS: Basophils # (auto) 0.03 K/uL (0-0.2); Basophils % (auto) 0.2 %; Eosinophils # (auto) 0.08 K/uL (0-0.50); Eosinophils % (auto) 0.6 %; Hematocrit (blood only) 36.3 % (34.1-44.9); Hemoglobin 12.5 g/dl (12.0-16.0); Immature Granulocytes % (auto) 0.8 %; Lymphocytes # (auto) 2.18 K/uL (1.2-3.4); Lymphocytes % (auto) 17.3 %; Mean Corpuscular Hemoglobin 29.3 pg (25.0-34.0); Mean Corpuscular Hgb Conc 34.4 g/dL (32.0-36.0); Mean Corpuscular Volume 85.2 fL (80.0-100.0); Mean Platelet Volume 10.4 fL (9.4-12.3); Monocytes # (auto) 0.91 K/uL (0.24-0.82); Monocytes % (auto) 7.2 %; Neutrophils # (auto) 9.32 K/uL (1.4-6.5); Neutrophils % (auto) 73.9 %; Platelet Count 202 K/uL (130-400); RDW Coefficient of Variation 12.6 % (11.5-14.5); RDW Standard Deviation 38.4 fL (36.4-46.3); Red Blood Count 4.26 M/uL (3.93-5.22); White Blood Count 12.62 K/ul (4.8-10.8)
--- NOTE | 2022-05-12 06:53 | History & Physical Bridge Note ---
Date of Service May 12, 2022 History & Physical Bridge Note I have examined the patient, reviewed the History & Physical and in the interval since the performance of the History & Physical I have noted the following changes of clinical significance: no changes noted
[2022-05-12] MEDS ORDERED: MoRPHine SULFATE PF 1 MG/ML 10 ML AMP/VIAL INT SPINAL ONE (07:32)
[2022-05-12] MEDS ORDERED: LACTATED RINGER'S 500 ML IV PRN (07:32)
[2022-05-12] MEDS ORDERED: NALBUPHINE HCL INJ 10 MG/ML AMP IV PRN (07:32)
[2022-05-12] MEDS ORDERED: NALOXONE HCL 0.08 MG in SYRINGE 1.8 ML IV PRN (07:32)
[2022-05-12] MEDS ORDERED: NALOXONE HCL 0.4 MG/1 ML VIAL/CARP IV PRN (07:32)
[2022-05-12] MEDS ORDERED: ePHEDrine sulfate 50 MG/ML AMP IV PRN (07:32)
[2022-05-12] MEDS ORDERED: NALOXONE HCL 1 MG in SODIUM CHLORIDE 0.9% 1000ML 1,000 ML IV PRN (07:32)
[2022-05-12] MEDS ORDERED: diphenhydrAMINE 50 MG/ML VIAL IV PRN (07:32)
[2022-05-12] MEDS ORDERED: ONDANSETRON INJ 2 MG/ML 2 ML VIAL IV PRN ×2 (07:32→12:58)
[2022-05-12] MEDS ORDERED: HYDROmorphone INJ 0.5 MG/0.5 ML SYR IV PRN (07:32)
[2022-05-12] MEDS ORDERED: KETOROLAC 30 MG/ML VIAL IV PRN (07:32)
[2022-05-12] MEDS ORDERED: MoRPHine SULFATE PF 1 MG/ML 10 ML AMP/VIAL ONE (07:39)
[2022-05-12] MEDS ORDERED: fentaNYL citrate 100 MCG/2 ML VIAL ONE (07:39)
[2022-05-12] MEDS ORDERED: DC INTRASPINAL MORPHINE SCH (07:45)
[2022-05-12] MEDS ORDERED: SODIUM CHLORIDE 0.9% 1000ML 1,000 ML IV SCH (07:45)
[2022-05-12] MEDS ORDERED: NO NARCOTICS OR SEDATIVES SCH (07:45)
[2022-05-12] MEDS ORDERED: OXYTOCIN 10 UNITS/ML 10ML VIAL ONE (07:52)
[2022-05-12] MEDS ORDERED: PHENYLEPHRINE 100MCG/ML 5ML SYR ONE (08:11)
--- NOTE | 2022-05-12 08:34 | Operative Report ---
PG Post Operative Report Pre & Post Diagnosis Operation Date: 05/12/22 07:30 <No data on this case meets the specified criteria> I identified the patient and participated in the time-out.: Yes Procedure Operation Date: 05/12/22 07:30 <No data on this case meets the specified criteria> Surgeon Rome Bedoya MD, FACOG Licensed Psychiatric Technician Dr. Moctezuma Estimated Blood Loss 500 Findings Consistent with Post-Op Diagnosis Specimens cord blood Description of Procedure Regional anesthetic had been given by anesthesia patient was prepped and draped with a leftward tilt preoperative antibiotics had been given in appropriate timing by anesthesiology. Once the prep was allowed to fully dry timeout was performed. Pickups with teeth were used to test the incision area was found to be adequate for incision as the patient did not feel sharp pain. Scalpel was used to make a Pfannenstiel incision on the lower abdomen. We then cut through the subcutaneous fat down to the level of the anterior rectus sheath fascia this was cut in the midline and then extended laterally with the curved Alegre scissors. At this stage we then placed 2 Jayna clamps on the anterior aspect of the fascia. Using the curved Alegre's we are able to dissect the fascia superiorly away from the rectus muscles. Care was taken to maintain hemostasis. Jayna clamps were then placed to the inferior aspect of the anterior sheath of the fascia. Fascia was then dissected away from the rectus muscles inferiorly towards the pubic bone. A Jayna was then placed in the midline both inferiorly and superiorly. This w as to allow exposure by retraction rectus muscles were in the midline with were then able to cut through the peritoneum and then enter the peritoneal cavity. Opening was enlarged to allow exposure of the peritoneal cavity both superiorly and inferiorly. Once adequate space was obtained a bladder retractor was placed to expose the lower segment Metzenbaums were used to dissect the bladder flap inferiorly away from the uterus. This was done sharply bladder retractor was then repositioned to expose the lower segment of the uterus Fresh scalpel was used to make a low transverse incision on the uterus. Uterus was then entered bluntly with the operators finger, membranes ruptured and the opening was enlarged using the operators fingers bluntly pulling superiorly and inferiorly to allow exposure. Baby was delivered by first flexion of the head elevation of the head out of the pelvis and then pressure by the loan officer assistant on the maternal abdomen. Baby's head was then delivered mouth and then nares were suctioned and then using gentle traction the baby was fully delivered. Live vigorous male infant. Fluid was clear cord clamped and cut cord gases obtained cord blood obtained baby handed to pediatrics. Placenta removed was removed with traction we ensure the entire placenta was removed with a moist lap sponge into the uterus Uterus was then exteriorized. IV Pitocin had been started by anesthesia tone improved there were no extensions the uterus was then closed using 0 Monocryl in a 2 layer closure the first layer closed in a running locked fashion from left to right and then a second closure from left to right in a running nonlocked fashion. At this stage hemostasis was excellent. Uterus was placed back in the peritoneal cavity with suction irrigation out and inspection of the uterus at this stage revealed excellent hemostasis Note no significant scar tissue and lower uterine segment was not overly thin. Retractors were removed urine color was clear at this stage of the case we inspected the rectus muscles they were hemostatic fascia was closed with 0 Vicryl subcutaneous fat was irrigated and closed with 3-0 Vicryl skin closed with 4-0 subcuticular Monocryl I attest to the content of the Intraoperative Record and any orders documented therein. Any exceptions are noted below. OB Procedure Charges 72078
--- NOTE | 2022-05-12 09:47 | Anesthesiology Progress Note ---
Date of Service May 12, 2022 Anesthesia Post Procedure Vital Signs Vital Signs: Temp Pulse Resp BP Pulse Ox 05/12/22 09:42 85 98 05/12/22 09:40 20 05/12/22 09:37 74 105/58 L 97 05/12/22 09:32 79 97 05/12/22 09:30 20 05/12/22 09:27 76 99 05/12/22 09:26 78 108/62 05/12/22 09:22 86 99 05/12/22 09:20 20 05/12/22 09:17 81 97 05/12/22 09:16 86 103/62 05/12/22 09:12 83 98 05/12/22 09:10 20 05/12/22 09:07 85 99 05/12/22 09:06 85 96/57 L 05/12/22 09:02 89 98 05/12/22 09:00 86 20 101/58 L 05/12/22 08:57 95 H 97 05/12/22 08:56 93 H 91 05/12/22 08:52 92 H 100 05/12/22 08:50 20 05/12/22 08:47 86 104/58 L 99 05/12/22 08:41 88 99 05/12/22 08:37 36.4 C L 85 20 111/58 L 05/12/22 08:36 80 100 05/12/22 07:22 96 H 99 05/12/22 07:17 94 H 100 05/12/22 07:12 101 H 100 05/12/22 07:07 91 H 100 05/12/22 07:02 90 99 05/12/22 06:57 100 H 99 05/12/22 06:52 89 99 05/12/22 06:47 87 99 05/12/22 06:42 95 H 99 05/12/22 06:37 91 H 98 05/12/22 06:32 98 H 99 05/12/22 06:27 91 H 99 05/12/22 06:25 96 H 118/80 05/12/22 06:22 98 H 99 05/12/22 06:17 90 98 05/12/22 06:12 89 99 05/12/22 05:50 36.9 C 98 H 16 133/75 05/12/22 05:41 98 H 133/75 Transfer of Care Handoff Completed per policy Notes Mental Status: alert / awake / arousable Patient Amnestic to Procedure: Yes Nausea / Vomiting: adequately controlled Pain: adequately controlled Airway Patency, RR, SpO2: stable & adequate BP & HR: stable & adequate Hydration State: stable & adequate Neuraxial Anesthesia: was administered and sensory block is resolving Anesthetic Complications: no major complications apparent and Pt Satisfied with anesthetic care
[2022-05-12] MEDS ORDERED: ONDANSETRON INJ 2 MG/ML 2 ML VIAL ONE (10:48)
[2022-05-12] MEDS ORDERED: BENZOCAINE 20% AER SPR 82.5 GM CAN EXT PRN (12:25)
[2022-05-12] MEDS ORDERED: HYDROCORTISONE ACETATE 25 MG SUPP PR PRN (12:25)
[2022-05-12] MEDS ORDERED: SENNA 8.6 MG TAB PO PRN (12:25)
[2022-05-12] MEDS ORDERED: NON-FORMULARY MEDICATION (Prenat.Vits,Cal,Min-Iron-Folic Tablet) PO SCH (12:25)
[2022-05-12] MEDS ORDERED: IRON PO SCH (12:25)
[2022-05-12] MEDS ORDERED: DIPHTHERIA/TETANUS/PERTUSSIS 0.5 ML SYR/VIAL IM ONE (12:25)
[2022-05-12] MEDS ORDERED: LACTATED RINGER'S 1,000 ML IV SCH (12:25)
[2022-05-12] MEDS ORDERED: MAGNESIUM HYDROXIDE SUSP 30 ML UDC PO PRN (12:45)
[2022-05-12] MEDS: SIMETHICONE 80 MG CHEW PO SCH ×3 (13:03→20:17)
[2022-05-12] MEDS: KETOROLAC 30 MG/ML VIAL IV PRN ×2 (13:15→20:18)
[2022-05-12] MEDS: FAMOTIDINE 10 MG TABLET PO SCH (14:28)
[2022-05-12] MEDS: OXYTOCIN 20 UNITS in LACTATED RINGER'S 1,000 ML IV SCH ×2 (14:28→22:32)
[2022-05-12] MEDS: DOCUSATE SODIUM 100 MG CAP PO SCH (20:17)
[2022-05-13] MEDS ORDERED: diphenhydrAMINE Capsule 25 MG CAP PO PRN (01:32)
[2022-05-13] MEDS ORDERED: ONDANSETRON INJ 2 MG/ML 2 ML VIAL IV PRN (01:32)
[2022-05-13] MEDS ORDERED: KETOROLAC 30 MG/ML VIAL IV PRN (01:32)
[2022-05-13] MEDS ORDERED: diphenhydrAMINE 50 MG/ML VIAL IV PRN (01:32)
[2022-05-13] MEDS ORDERED: PROMETHAZINE HCL 25 MG in SODIUM CHLORIDE 0.9% 50 ML IV PRN (01:32)
--- NOTE | 2022-05-13 04:52 | Obstetrical Progress Note ---
Date of Service <Joanna Headley, DO - Last Filed: 05/13/22 06:07> May 13, 2022 Assessment & Plan <Joanna Headley DO - Last Filed: 05/13/22 06:07> (1) Status post section: Rosenbaum is out, was bale to get OOB and ambulate and tolerating regular diet <Buffy Hardy, DO - Last Filed: 05/13/22 07:51> (1) Status post section: Subjective <Joanna Headley, DO - Last Filed: 05/13/22 06:07> Fabiola is a 36 y/o female who is POD #1 following delivery at 39 2/7. She reports feeling well overall this morning. Minimal abdominal cramping pain well managed on analgesics. Just had Rosenbaum out, not voiding yet. Tolerating meals overnight and able to ambulte some. Is passing gas, no bowel movement. Has some persistent lochia with some improvement this morning. Currently breast and bottle feeding. Review of Systems Denies fever, chills, sweats Denies shortness of breath, difficulty breathing, chest pain, palpitations, chest pressure. Denies breast pain. Denies dysuria. Denies headache or changes in vision. Physical Exam <Joanna Headley, DO - Last Filed: 05/13/22 06:07> General: Alert, oriented. No acute distress. Cardiac: Regular rate and rhythm, no murmurs/rubs/gallops. Respiratory: Clear to auscultation bilaterally a/p, no wheezes/rales/rhonchi. No increased work of breathing. Symmetrical chest rise. No respiratory distress. Abdomen: Soft, nontender, nondistended. Bowel sounds present. Uterus: Uterine fundus firm. Surgical scar clean and healing well. Lower Extremities: No lower extremity edema or swelling. No deep calf pain. Namita's negative bilaterally. Results & Data ([facility]) <Joanna Headley, DO - Last Filed: 05/13/22 06:07> Vital Signs (Past 12 Hours) Vital Signs Temp Pulse Resp BP Pulse Ox 05/13/22 00:00 18 97 05/12/22 23:20 36.8 C 84 18 97/73 L 99 05/12/22 23:00 18 97 05/12/22 22:00 18 98 05/12/22 21:00 18 97 05/12/22 20:20 36.9 C 74 18 99/64 L 97 05/12/22 20:00 18 97 05/12/22 19:00 18 98 05/12/22 18:40 16 98 05/12/22 17:40 16 99 Laboratory Results 05/12/22 Range/Units 06:03 WBC 12.62 H (4.8-10.8) K/ul RBC 4.26 (3.93-5.22) M/uL Hgb 12.5 (12.0-16.0) g/dl Hct 36.3 (34.1-44.9) % MCV 85.2 (80.0-100.0) fL MCH 29.3 (25.0-34.0) pg MCHC 34.4 (32.0-36.0) g/dL RDW Std Deviation 38.4 (36.4-46.3) fL RDW Coeff of Sue 12.6 (11.5-14.5) % Plt Count 202 (130-400) K/uL MPV 10.4 (9.4-12.3) fL Immature Gran % (Auto) 0.8 % Neut % (Auto) 73.9 % Lymph % (Auto) 17.3 % Calloway % (Auto) 7.2 % Eos % (Auto) 0.6 % Baso % (Auto) 0.2 % Neut # (Auto) 9.32 H (1.4-6.5) K/uL Lymph # (Auto) 2.18 (1.2-3.4) K/uL C[place]ay # (Auto) 0.91 H (0.24-0.82) K/uL Eos # (Auto) 0.08 (0-0.50) K/uL Baso # (Auto) 0.03 (0-0.2) K/uL Immature Gran # (Auto) 0.10 H (0.00-0.02) K/uL <Buffy Hardy, DO - Last Filed: 05/13/22 07:51> Co-Signing Physician Notes Resident Physician Supervision Note: I was present with Dr. Headley during the history and exam. I discussed the case with the resident and agree with the findings and plan as documented in the note. Any exceptions or clarifications are listed here: POD#1 doing well. Routine postop care. Documented By: Buffy Hardy DO Resident Activity Tracking <Joanna Headley DO - Last Filed: 05/13/22 06:07> Resident Involvement: Resident Care Provided Care Provided: OB Delivery (Post )
[2022-05-13 06:46] LABS: Basophils # (auto) 0.02 K/uL (0-0.2); Basophils % (auto) 0.2 %; Eosinophils # (auto) 0.09 K/uL (0-0.50); Eosinophils % (auto) 0.8 %; Hematocrit (blood only) 35.2 % (34.1-44.9); Hemoglobin 11.8 g/dl (12.0-16.0); Immature Granulocytes # (auto) 0.05 K/uL (0.00-0.02); Immature Granulocytes % (auto) 0.4 %; Lymphocytes # (auto) 1.39 K/uL (1.2-3.4); Lymphocytes % (auto) 12.3 %; Mean Corpuscular Hemoglobin 28.8 pg (25.0-34.0); Mean Corpuscular Hgb Conc 33.5 g/dL (32.0-36.0); Mean Corpuscular Volume 85.9 fL (80.0-100.0); Monocytes # (auto) 0.67 K/uL (0.24-0.82); Monocytes % (auto) 5.9 %; Neutrophils # (auto) 9.08 K/uL (1.4-6.5); Neutrophils % (auto) 80.4 %; Platelet Count 182 K/uL (130-400); RDW Coefficient of Variation 12.7 % (11.5-14.5); RDW Standard Deviation 39.1 fL (36.4-46.3)
[2022-05-13] MEDS: PRENATAL VITAMIN 1 TAB PO SCH (07:50)
[2022-05-13] MEDS: DOCUSATE SODIUM 100 MG CAP PO SCH ×2 (07:50→20:07)
[2022-05-13] MEDS: FERROUS SULFATE 325 MG TAB PO SCH (07:50)
[2022-05-13] MEDS: SIMETHICONE 80 MG CHEW PO SCH ×4 (07:50→20:07)
[2022-05-13] MEDS: IBUPROFEN 600 MG TAB PO PRN ×3 (07:51→18:02)
[2022-05-13] MEDS: FAMOTIDINE 10 MG TABLET PO SCH (08:13)
[2022-05-13] MEDS: oxyCODONE/ACETAMINOPHEN 5mg/325mg TAB PO PRN ×2 (14:22→18:01)
[2022-05-13] MEDS ORDERED: bisacodyL 5 MG TABEC PO SCH (20:00)
[2022-05-14] MEDS: IBUPROFEN 600 MG TAB PO PRN ×3 (00:05→13:52)
--- NOTE | 2022-05-14 05:22 | Obstetrical Progress Note ---
Date of Service <Joanna Headley - Last Filed: 05/14/22 06:33> May 14, 2022 Assessment & Plan <Joanna Headley - Last Filed: 05/14/22 06:33> (1) Status post section: [place] d/c yesterday, voiding. Able to ambulate. Tolerating regular diet. Co nsider discharge today. <Griselda Stiles MD, FACOG - Last Filed: 05/14/22 07:43> (1) Status post section: Subjective <Joanna Headley - Last Filed: 05/14/22 06:33> Fabiola is a 36 y/o female who is POD #2 following delivery at 39 2/7. She reports feeling well overall this morning. Mild abdominal cramping pain well managed on analgesics. Voiding . Tolerating meals overnight and able to ambulate. Is passing gas, but no bowel movement. Has some persistent lochia with some improvement this morning. Currently breast and bottle feeding. Review of Systems Denies fever, chills, sweats Denies shortness of breath, difficulty breathing, chest pain, palpitations, chest pressure. Denies breast pain. Denies dysuria. Denies headache or changes in vision. Physical Exam <Joanna Headley - Last Filed: 05/14/22 06:33> General: Alert, oriented. No acute distress. Cardiac: Regular rate and rhythm, no murmurs/rubs/gallops. Respiratory: Clear to auscultation bilaterally a/p, no wheezes/rales/rhonchi. No increased work of breathing. Symmetrical chest rise. No respiratory distress. Abdomen: Soft, nontender, nondistended. Bowel sounds present. Uterus: Uterine fundus firm. Surgical wound clean and dry. Lower Extremities: No lower extremity edema or swelling. No deep calf pain. Namita's negative bilaterally. Results & Data ([facility]) <Joanna HeadleyDO - Last Filed: 05/14/22 06:33> Vital Signs (Past 12 Hours) Vital Signs Temp Pulse Resp BP 05/14/22 00:00 36.9 C 91 H 18 110/74 05/13/22 20:00 36.8 C 85 18 111/75 <Griselda Stiles MD, FACOG - Last Filed: 05/14/22 07:43> Co-Signing Physician Notes Resident Physician Supervision Note: I was present with Dr. Headley during the history and exam. I discussed the case with the resident and agree with the findings and plan as documented in the note. Any exceptions or clarifications are listed here: stable, desires dc home, f/u 6wk pp. instructions reviewed. eating, voiding, ambulating +flatus, good pain control. abd soft ff 2 down nt, incision c/d/i with steris, nt calves. pod#2. Documented By: Griselda Stiles MD, FACOG Resident Activity Tracking <Joanna Headley, DO - Last Filed: 05/14/22 06:33> Resident Involvement: Resident Care Provided Care Provided: OB Delivery (Post )
[2022-05-14 06:21] LABS: Hematocrit (blood only) 32.4 % (34.1-44.9); Hemoglobin 10.6 g/dl (12.0-16.0)
[2022-05-14] MEDS ORDERED: bisacodyL 10 MG SUPP PR PRN (08:31)
[2022-05-14] MEDS: SIMETHICONE 80 MG CHEW PO SCH ×2 (09:23→13:51)
[2022-05-14] MEDS: FERROUS SULFATE 325 MG TAB PO SCH (09:24)
[2022-05-14] MEDS: FAMOTIDINE 10 MG TABLET PO SCH (09:24)
[2022-05-14] MEDS: oxyCODONE/ACETAMINOPHEN 5mg/325mg TAB PO PRN ×2 (09:24→13:51)
[2022-05-14] MEDS: DOCUSATE SODIUM 100 MG CAP PO SCH (09:24)
[2022-05-14] MEDS: PRENATAL VITAMIN 1 TAB PO SCH (09:24)
== END 2022-05-14 14:00 | disposition home or self-care (01) | DRG 788 ==
LOC: 4S1 05:34 → EDSTATUS 07:30 → 4E2 11:10

== ENCOUNTER 2024-04-08 07:30 | Inpatient (IN) ==
--- NOTE | 2024-03-16 13:25 | Anesthesiology Consultation ---
Date of Service March 16, 2024 Assessment & Plan (1) Encounter for pre-operative examination: Chart Review Chart Review: entry level receptionist initiated -Infectious Disease screening: Per PAT nursing assessment on 03/16/24. Patient with cough and congestion- started around 03/09/24/03/10/24- improved with Mucinex. No known infectious disease contacts in past 10 days . No recent travel outside the country.Symptom onset >11 days from day of procedure- patient can proceed as scheduled pending symptoms resolve. 05/12/22= Done under SAB at L3-4 with 1 attempt History Surgery Operation Date: 04/08/24 08:45 Proposed Procedures p Section in LD (Delivery of Baby Through Abdominal Incision) with - Rome Bedoya MD, FACOG s Bilateral Tubal Ligation - Rome Bedoya MD, FACOG Height/Weight Height: 5 ft 1.5 in Weight: 69.853 kg Allergies Allergy/AdvReac Type Severity Reaction Status Date / Time No Known Allergies Allergy Verified 03/16/24 13:12 Medications Home Medications Medication Instructions Recorded Confirmed Last Taken calcium carbonate [Tums] PO PRN 02/01/24 03/16/24 Unknown famotidine PO 02/01/24 03/16/24 Unknown 21-iron fu-folic acid PO 02/01/24 03/16/24 Unknown [ Complete] Past Medical History Medical History GERD (gastroesophageal reflux disease) MILD History of chicken pox History of kidney stones (2018) Seasonal allergies Past Family History Family History Mother Stomach cancer Colorectal cancer Father Dyslipidemia Hypertension Other Gestational diabetes No family history of adverse response to anesthesia Schizophrenia Denies family history of Ovarian cancer Breast cancer Past Surgical History Surgical History H/O parathyroidectomy D/T OVERPRODUCTION OF CALCIUM History of section X 2 History of colonoscopy History of esophagogastroduodenoscopy History of lithotripsy [place] teeth removed Social History Smoking Status: Never smoker Do You Dip or Chew Tobacco: No Hx Alcohol Use: No Alcohol type: beer alcohol intake frequency: a few times a month Hx Substance Use: No substance use type: does not use Lab Results Anesthesia Preop Results Results Anesthesia Widget: Hgb 11.9 g/dl (12.0-16.0) L 02/17/24 Hct 34.7 % (37.0-47.0) L 02/17/24
[2024-04-08] MEDS: LACTATED RINGER'S 1,000 ML IV SCH (08:24)
--- NOTE | 2024-04-08 08:33 | History & Physical Report ---
Date of Service April 08, 2024 Assessment & Plan (1) Previous delivery affecting , antepartum: (2) Supervision of elderly multigravida: Plan 37 y/o at 39 weeks and 4 days of gestational age - to OR for section this am - Ancef pre op - tracing category 1 Admission and Anticipated Discharge Date Admission Date: April 08, 2024 History of Present Illness Primary Care Provider: Geri Jauregui, DO 37 y/o at 39 weeks and 4 days of gestational age. Here for a repeat C- section. Complications with this include AMA. Has been attending OB appointments regularly. Currently taking no medications. GBS negative, Rubella immune, BTG: AB positive Contractions: none. Fluid or Blood loss: none Movement: active FHR baseline 130, moderate variability, accelerations present, decelerations absent OB Labs: Blood Type AB Positive 09/02/23 Antibody Screen NEGATIVE 09/02/23 Hemoglobin 11.9 g/dl (12.0-16.0) L 02/17/24 Hematocrit 34.7 % (37.0-47.0) L 02/17/24 Mean Corpuscular Volume 83.2 fL (80.0-100.0) 09/02/23 Platelet Count 272 K/uL (130-400) 09/02/23 Rubella IgG Antibody Immune (Immune) 09/02/23 Rapid Plasma Reagin Nonreactive (Nonreactive) 09/02/23 Hepatitis B Surface Antigen. NON-REACTIVE (NON-REACTIVE) 09/02/23 Hepatitis C Antibody (EIA) NON-REACTIVE (NON-REACTIVE) 09/02/23 HIV (1&2) Ab and P24 Ag, 4th Gener NON-REACTIVE (NON-REACTIVE) 10/11/21 HIV (1&2) Ag and Ab Confirmation NON-REACTIVE (NON-REACTIVE) 09/02/23 Glucose 1 Hour 50 gm Load 184 mg/dl (70-130) H 11/05/23 Maternal Serum Alpha Fetoprotein 38.7 ng/mL 12/11/21 OB Optional Labs: Chlamydia trachomatis RNA Not Detected (NotDetected) 09/02/23 Neisseria gonorrhoeae RNA Not Detected (NotDetected) 09/02/23 Alpha Fetoprotein Triple Screen SEE NOTE 12/11/21 Labs Reviewed: cfdna-low risk--mln afp nag--akh gbs neg--akh passed 2 hr gtt x 2--akh Allergies Allergy/AdvReac Type Severity Reaction Status Date / Time No Known Allergies Allergy Verified 04/07/24 08:45 Home Medications Medication Instructions Recorded Confirmed Type calcium carbonate [Tums] PO PRN Acid Reflux 02/01/24 04/07/24 History famotidine PO 02/01/24 04/07/24 History 21-iron fu-folic acid PO 02/01/24 04/07/24 History [ Complete] Patient History Medical History GERD (gastroesophageal reflux disease) MILD History of chicken pox History of kidney stones (2019) Seasonal allergies Surgical History H/O parathyroidectomy D/T OVERPRODUCTION OF CALCIUM History of section X 2 History of colonoscopy History of esophagogastroduodenoscopy History of lithotripsy [place] teeth removed Family History Mother Stomach cancer Colorectal cancer Father Dyslipidemia Hypertension Other Gestational diabetes No family history of adverse response to anesthesia Schizophrenia Denies family history of Ovarian cancer Breast cancer Social History Smoking Status: Never smoker Second Hand Exposure: No; Do You Dip or Chew Tobacco: No; Tobacco Cessation Education Requested by Patient: No Hx Alcohol Use: No Hx Substance Use: No Preferred Language: [place] Communication Ability: Effective 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 Beliefs That Will Affect Care: None marital status: marital status details: Wenceslao (39) [phone] Current Living Situation: Spouse Current Living Situation Comment: Lives at home with and two children current occupational status: employed current occupation: PA @ [employer] Other Information That Helps Us Care for You: No Feels Safe at Home: Yes Safety Concerns: Feels Safe At This Time Assistive Devices: None Review of Systems as per HPI Physical Exam Physical Exam: General: patient resting comfortably, NAD, non-toxic in appearance, AA&O x 4, answers questions appropriately. Heart: +S1/S2, regular, no m/r/g Lungs: equal air entry bilaterally, no rales/rhonchi/wheezes Abd: +BS, soft, NT/ND, gravid uterus Ext: warm, no clubbing/cyanosis or edema Neuro: nonfocal, patient AA&O x 4, speech intact, no facial droop, moving all extremities on command. Results & Data Vital Signs (Past 12 Hours) Vital Signs Temp Pulse Resp BP 04/08/24 08:09 90 119/75 04/08/24 08:03 36.7 C 90 16 119/75 Supervising Physician Co-Signing Physician Notes Resident Physician Supervision Note: I interviewed and examined the patient. Discussed with [Name of resident] and agree with findings and plan as documented in the note. Any exceptions or clarifications are listed here: [None] Documented By: Rome Bedoya MD, FACOG Resident Activity Tracking Resident Involvement: Resident Care Provided Care Provided: OB Delivery
[2024-04-08 09:37] LABS: Basophils # (auto) 0.03 K/uL (0.00-0.20); Basophils % (auto) 0.4 %; Eosinophils # (auto) 0.06 K/uL (0.00-0.50); Eosinophils % (auto) 0.7 %; Hematocrit (blood only) 35.2 % (37.0-47.0); Hemoglobin 11.9 g/dl (12.0-16.0); Immature Granulocytes # (auto) 0.06 K/uL (0.01-0.20); Immature Granulocytes % (auto) 0.7 %; Lymphocytes # (auto) 1.81 K/uL (1.20-3.40); Lymphocytes % (auto) 21.1 %; Mean Corpuscular Hemoglobin 28.6 pg (25.0-34.0); Mean Corpuscular Hgb Conc 33.8 g/dL (32.0-36.0); Mean Corpuscular Volume 84.6 fL (80.0-100.0); Mean Platelet Volume 11.2 fL (9.4-12.4); Monocytes # (auto) 0.67 K/uL (0.11-0.59); Monocytes % (auto) 7.8 %; Neutrophils # (auto) 5.94 K/uL (1.40-6.50); Neutrophils % (auto) 69.3 %; Platelet Count 171 K/uL (130-400); RDW Coefficient of Variation 12.5 % (11.5-14.5); RDW Standard Deviation 38.4 fL (36.4-46.3); Red Blood Count 4.16 M/uL (4.20-5.40); White Blood Count 8.57 K/ul (4.8-10.8)
[2024-04-08] MEDS ORDERED: MEPERIDINE HCL 25 MG/ML CARP/VIAL IV PRN ×2 (09:51→13:22)
[2024-04-08] MEDS ORDERED: ONDANSETRON INJ 2 MG/ML 2 ML VIAL IV PRN ×2 (09:51→13:22)
[2024-04-08] MEDS ORDERED: NALOXONE HCL 0.08 MG in SYRINGE 1.8 ML IV PRN ×2 (09:51→13:22)
[2024-04-08] MEDS ORDERED: NALOXONE HCL 0.4 MG/1 ML VIAL/CARP IV PRN ×2 (09:51→13:22)
[2024-04-08] MEDS ORDERED: KETOROLAC 30 MG/ML VIAL IV PRN (09:51)
[2024-04-08] MEDS ORDERED: MoRPHine SULFATE 2 MG/ML CARP IV PRN ×2 (09:51→13:22)
[2024-04-08] MEDS ORDERED: ePHEDrine sulfate 50 MG/ML AMP IV PRN ×2 (09:51→13:22)
[2024-04-08] MEDS ORDERED: NALBUPHINE HCL 5 MG in SYRINGE 0 ML IV PRN ×2 (09:51→13:22)
[2024-04-08] MEDS ORDERED: NALOXONE HCL 1 MG in SODIUM CHLORIDE 0.9% 1,000 ML IV PRN ×2 (09:51→13:22)
[2024-04-08] MEDS ORDERED: diphenhydrAMINE 50 MG/ML VIAL IV PRN ×2 (09:51→13:22)
[2024-04-08] MEDS ORDERED: LACTATED RINGER'S 500 ML IV PRN ×2 (09:51→13:22)
[2024-04-08] MEDS ORDERED: MoRPHine SULFATE PF 1 MG/ML 10 ML AMP/VIAL INT SPINAL ONE ×2 (09:51→13:22)
[2024-04-08] MEDS ORDERED: HYDROmorphone INJ 0.5 MG/0.5 ML SYR IV PRN ×2 (09:51→13:22)
[2024-04-08] MEDS ORDERED: PROMETHAZINE HCL 6.25 MG in SODIUM CHLORIDE 0.9% 50 ML IV PRN ×2 (09:51→13:22)
[2024-04-08] MEDS ORDERED: MoRPHine SULFATE PF 1 MG/ML 10 ML AMP/VIAL ONE (09:54)
[2024-04-08] MEDS ORDERED: SODIUM CHLORIDE 0.9% 1,000 ML IV SCH (10:00)
[2024-04-08] MEDS ORDERED: NO NARCOTICS OR SEDATIVES SCH ×2 (10:00→13:30)
[2024-04-08] MEDS ORDERED: DC INTRASPINAL MORPHINE SCH ×2 (10:00→13:30)
[2024-04-08] MEDS: ceFAZolin 2000MG 2,000 MG/15 ML SYR IV SCH (10:19)
[2024-04-08] MEDS ORDERED: ONDANSETRON INJ 2 MG/ML 2 ML VIAL ONE (10:45)
[2024-04-08] MEDS ORDERED: DEXAMETHASONE SOD INJ 4 MG/ML VIAL ONE (10:45)
[2024-04-08] MEDS ORDERED: KETOROLAC 30 MG/ML VIAL ONE (10:45)
[2024-04-08] MEDS ORDERED: PHENYLEPHRINE HCL 25 MG/250 ML NSS IV ONE (10:45)
[2024-04-08] MEDS ORDERED: OXYTOCIN 10 UNITS/ML VIAL ONE (10:45)
[2024-04-08] MEDS ORDERED: LIDOCAINE 2% 20 MG/ML 5 ML SYR IV ONE (11:30)
[2024-04-08] MEDS ORDERED: LIDOCAINE 2%/EPINEPHRINE 1:200,000 20 ML PF ONE (11:30)
--- NOTE | 2024-04-08 12:18 | Operative Report ---
PG Post Operative Report Pre & Post Diagnosis Operation Date: 04/08/24 09:50 Pre-Op Diagnosis: desires repeat section desires permanent sterilization Post-Op Diagnosis: same I identified the patient and participated in the time-out.: Yes Procedure Operation Date: 04/08/24 09:50 Repeat section low transverse and bilateral salpingectomy Surgeon Rome Bedoya MD, FACOG Or Rn Dr. Pastor Estimated Blood Loss 201 Findings Consistent with Post-Op Diagnosis Specimens Cord blood bilateral fallopian tubes Description of Procedure Regional anesthetic had been given by anesthesia patient was prepped and draped with a leftward tilt preoperative antibiotics had been given in appropriate timing by anesthesiology. Once the prep was allowed to fully dry timeout was performed. Pickups with teeth were used to test the incision area was found to be adequate for incision as the patient did not feel sharp pain. Scalpel was used to make a Pfannenstiel incision on the lower abdomen. We then cut through the subcutaneous fat down to the level of the anterior rectus sheath fascia this was cut in the midline and then extended laterally with the curved Alegre scissors. At this stage we then placed 2 Jayna clamps on the anterior aspect of the fascia. Using the curved Alegre's we are able to dissect the fascia superiorly away from the rectus muscles. Care was taken to maintain hemostasis. Jayna clamps were then placed to the inferior aspect of the anterior sheath of the fascia. Fascia was then dissected away from the rectus muscles inferiorly towards the pubic bone. A Jayna was then placed in the midline both inferiorly and superiorly. This was to allow exposure by retraction rectus muscles were in the midline with were then able to cut through the peritoneum and then enter the peritoneal cavity. Opening was enlarged to allow exposure of the peritoneal cavity both superiorly and inferiorly. Once adequate space was obtained a bladder retractor was placed to expose the lower segment Metzenbaums were used to dissect the bladder flap inferiorly away from the uterus. This was done sharply bladder retractor was then repositioned to expose the lower segment of the uterus Fresh scalpel was used to make a low transverse incision on the uterus. Uterus was then entered bluntly with the operators finger, membranes ruptured and the opening was enlarged using the operators fingers bluntly pulling superiorly and inferiorly to allow exposure. Baby was delivered by first flexion of the head elevation of the head out of the pelvis and then pressure by the fitter's assistant on the maternal abdomen. Baby's head was then delivered mouth and then nares were suctioned and then using gentle traction the baby was fully delivered. Live vigorous infant. Fluid was clear cord clamped and cut cord gases obtained cord blood obtained baby handed to pediatrics. Placenta removed was removed with traction we ensure the entire placenta was removed with a moist lap sponge into the uterus Uterus was then exteriorized. IV Pitocin had been started by anesthesia tone improved there were no extensions the uterus was then closed using 0 Monocryl in a 2 layer closure the first layer closed in a running locked fashion from left to right and then a second closure from left to right in a running nonlocked fashion. At this stage hemostasis was excellent. Tubal ligation was performed using LigaSure identified on the right side the distal end of the fallopian tube and fimbria we then using the LigaSure coagulated and cut the fallopian tube from its blood supply once this was done to the portion of the uterus near the isthmus the tube was transected using the LigaSure hemostasis was excellent the tube was sent to pathology the exact same process was repeated on the left side Once the uterus was placed back inside inspected the tubal ligation areas both were hemostatic Uterus was placed back in the peritoneal cavity with suction irrigation out and inspection of the uterus at this stage revealed excellent hemostasis Retractors were removed urine color was clear at this stage of the case we inspected the rectus muscles they were hemostatic fascia was closed with 0 Vicryl subcutaneous fat was irrigated and closed with 3-0 Vicryl skin closed with 4-0 subcuticular Monocryl I attest to the content of the Intraoperative Record and any orders documented therein. Any exceptions are noted below. OB Procedure Charges 45551
[2024-04-08] MEDS ORDERED: SENNA 8.6 MG TAB PO PRN (12:33)
[2024-04-08] MEDS ORDERED: DIPHTHER/TETAN/PERTUS Vaccine (Tdap, Adol/Adult) 0.5mL IM ONE (12:33)
[2024-04-08] MEDS ORDERED: HYDROCORTISONE ACETATE 25 MG SUPP PR PRN (12:33)
[2024-04-08] MEDS ORDERED: LACTATED RINGER'S 1,000 ML IV SCH (12:33)
[2024-04-08] MEDS ORDERED: BENZOCAINE 20% SPRY 85 APPLN/85 GM CAN EXT PRN (12:33)
[2024-04-08] MEDS: OXYTOCIN 20 UNITS/LR 1,002 ML IV SCH (12:53)
--- NOTE | 2024-04-08 13:26 | Anesthesiology Progress Note ---
Date of Service April 08, 2024 Anesthesia Post Procedure Vital Signs Vital Signs: Temp Pulse Resp BP Pulse Ox 04/08/24 13:20 80 99 04/08/24 13:20 75 99 04/08/24 13:15 80 99 04/08/24 13:12 72 104/60 04/08/24 13:10 77 100 04/08/24 13:10 77 100 04/08/24 13:05 77 100 04/08/24 13:02 73 103/65 04/08/24 13:00 79 100 04/08/24 13:00 79 100 04/08/24 12:55 77 100 04/08/24 12:52 78 104/63 04/08/24 12:50 80 99 04/08/24 12:50 81 100 04/08/24 12:45 80 99 04/08/24 12:43 79 107/57 L 04/08/24 12:41 81 100 04/08/24 12:40 81 100 04/08/24 12:35 83 100 04/08/24 12:33 86 106/74 04/08/24 12:30 36.5 C 83 100 04/08/24 12:30 86 100 04/08/24 12:25 84 100 04/08/24 12:21 77 91/55 L 04/08/24 12:20 84 100 04/08/24 08:09 90 119/75 04/08/24 08:03 36.7 C 90 16 119/75 Transfer of Care Handoff Completed per policy Notes Mental Status: alert / awake / arousable Nausea / Vomiting: adequately controlled Pain: adequately controlled Airway Patency, RR, SpO2: stable & adequate BP & HR: stable & adequate Hydration State: stable & adequate Neuraxial Anesthesia: was administered and sensory block is resolving Anesthetic Complications: no major complications apparent, see Notes below and Pt Satisfied with anesthetic care Notes: spinal was technically easy to place. spinal fluid was withdrawn at start and end of injection, however the patient never experienced an appreciable sensory or motor blockade. as a repeat spinal would have presented a significant risk for high spinal syndrome, an epidural was placed and dosed with 2% lidocaine with epi 1:200k for the procedure. this produced excellent surgical anesthetic and the case proceeded awake without incident. the epidural catheter was removed after the procedure with tip intact.
[2024-04-08] MEDS: SIMETHICONE 80 MG CHEW PO SCH (20:55)
[2024-04-08] MEDS: DOCUSATE SODIUM 100 MG CAP PO SCH (20:55)
[2024-04-08] MEDS: SODIUM CHLORIDE 0.9% 1,000 ML IV SCH (21:19)
[2024-04-09] MEDS: KETOROLAC 30 MG/ML VIAL IV PRN (03:35)
[2024-04-09] MEDS: diphenhydrAMINE Capsule 25 MG CAP PO PRN (03:36)
[2024-04-09] MEDS ORDERED: PROMETHAZINE HCL 25 MG in SODIUM CHLORIDE 0.9% 50 ML IV PRN (03:54)
[2024-04-09] MEDS ORDERED: ONDANSETRON INJ 2 MG/ML 2 ML VIAL IV PRN (03:54)
[2024-04-09] MEDS ORDERED: KETOROLAC 30 MG/ML VIAL IV PRN (03:54)
[2024-04-09] MEDS ORDERED: diphenhydrAMINE 50 MG/ML VIAL IV PRN (03:54)
[2024-04-09] MEDS ORDERED: oxyCODONE/ACETAMINOPHEN 5mg/325mg TAB PO PRN (03:54)
[2024-04-09 06:14] LABS: Basophils # (auto) 0.03 K/uL (0.00-0.20); Basophils % (auto) 0.3 %; Eosinophils # (auto) 0.06 K/uL (0.00-0.50); Eosinophils % (auto) 0.5 %; Hematocrit (blood only) 31.2 % (37.0-47.0); Hemoglobin 10.7 g/dl (12.0-16.0); Immature Granulocytes # (auto) 0.06 K/uL (0.01-0.20); Immature Granulocytes % (auto) 0.5 %; Lymphocytes # (auto) 2.06 K/uL (1.20-3.40); Mean Corpuscular Hemoglobin 29.1 pg (25.0-34.0); Mean Corpuscular Hgb Conc 34.3 g/dL (32.0-36.0); Mean Corpuscular Volume 84.8 fL (80.0-100.0); Mean Platelet Volume 11.2 fL (9.4-12.4); Monocytes # (auto) 1.02 K/uL (0.11-0.59); Monocytes % (auto) 8.9 %; Neutrophils # (auto) 8.19 K/uL (1.40-6.50); Neutrophils % (auto) 71.8 %; Platelet Count 147 K/uL (130-400); RDW Coefficient of Variation 12.4 % (11.5-14.5); RDW Standard Deviation 37.8 fL (36.4-46.3); Red Blood Count 3.68 M/uL (4.20-5.40); White Blood Count 11.42 K/ul (4.8-10.8)
--- NOTE | 2024-04-09 06:35 | Obstetrical Progress Note ---
Date of Service April 09, 2024 Assessment & Plan (1) Encounter for care and examination after delivery: Plan 37 y/o POD#1 s/p Doing well this morning Vital signs reviewed Rubella immune, A+ Pain control Encourage ambulation Encourage breast feeding Continue post care Admission and Anticipated Discharge Date Admission Date: April 08, 2024 Supervising Physician Co-Signing Physician Notes Resident Physician Supervision Note: I interviewed and examined the patient. Discussed with Adrianne Ghosh and agree with findings and plan as documented in the note. Any exceptions or clarifications are listed here: [None] Documented By: Rome Bedoya MD, FACOG Subjective 38 yo post- day 1 s/p Ambulation: ambulating normally Voiding: no voiding problems Passing Gas:: Yes Diet Tolerance:: regular diet Lochia:: Small Feeding Type: breast feeding Current Pain Level: moderate Resting comfortably this AM in NAD. Denies ROW[place], CP, SOB, N/V/D, LE pain/swelling. Review of Systems Review of Systems: as per HPI Physical Exam Physical Exam: General: patient resting comfortably, NAD, non-toxic in appearance, AA&O x 4, answers questions appropriately. Heart: +S1/S2, regular, no m/r/g Lungs: equal air entry bilaterally, no rales/rhonchi/wheezes Abd: +BS, soft, NT/ND, uterine fundus firm at umbilicus. incision clean and dry Ext: warm, no clubbing/cyanosis or edema, Namita's neg. Neuro: nonfocal, patient AA&O x 4, speech intact, no facial droop, moving all extremities on command. Results & Data Vital Signs (Past 12 Hours) Vital Signs Temp Pulse Resp BP Pulse Ox O2 Del Method 04/09/24 04:40 36.5 C 69 18 106/69 99 Room Air 04/09/24 03:15 16 94 04/09/24 02:10 18 96 04/09/24 01:15 18 97 04/09/24 00:30 18 96 04/09/24 00:30 36.7 C 73 18 97/63 L 96 Room Air 04/08/24 23:00 18 95 04/08/24 22:00 18 97 04/08/24 21:00 18 98 04/08/24 20:58 126/74 04/08/24 20:00 18 98 04/08/24 19:35 36.5 C 69 18 93/59 L 97 Room Air 04/08/24 19:00 18 97 Resident Activity Tracking Resident Involvement: Resident Care Provided Care Provided: OB Delivery
[2024-04-09] MEDS: PRENATAL VITAMIN 1 TAB PO SCH (08:26)
[2024-04-09] MEDS: FERROUS SULFATE 325 MG TAB PO SCH (08:26)
[2024-04-09] MEDS: IBUPROFEN 600 MG TAB PO PRN (10:26)
[2024-04-09] MEDS: ACETAMINOPHEN 325 MG TAB PO PRN (13:36)
[2024-04-10] MEDS: MAGNESIUM HYDROXIDE SUSP 30 ML UDC PO PRN (07:10)
[2024-04-10] MEDS: bisacodyL 5 MG TABEC PO SCH (07:16)
--- NOTE | 2024-04-10 07:49 | Obstetrical Progress Note ---
Date of Service April 10, 2024 Assessment & Plan (1) Encounter for care and examination after delivery: 38 yo POD 2 from rLTCS/BTL, doing well -Meeting all pp milestones -Rh+/rubella immune/ -f/u 6 weeks for appt, dc home Subjective Ambulation: ambulating normally Voiding: no voiding problems Passing Gas:: Yes Diet Tolerance:: regular diet Lochia:: Small Feeding Type:: breast feeding Pain well managed with medication Review of Systems Denies fevers, chills, n/v, ROW[place], CP, SOB Physical Exam Constitutional WD/WN, vitals as above no acute distress Respiratory normal respiratory effort, lungs clear to auscultation Cardiovascular RRR, no murmur, no edema Gastrointestinal (Abdomen) Percussion/Palpation: abdomen soft; abdomen nontender fundus firm at umbilicus and NT, incision c/d/i Musculoskeletal BLE symmetric, nonerythematous, nontender Results & Data Vital Signs (Past 12 Hours) Vital Signs Temp Pulse Resp BP Pulse Ox O2 Del Method 04/10/24 07:29 97.5 F L 74 16 124/83 04/10/24 00:04 97.7 F 71 16 115/77 97 Room Air
[2024-04-10 08:20] LABS: Hematocrit (blood only) 33.1 % (37.0-47.0); Hemoglobin 11.1 g/dl (12.0-16.0)
[2024-04-10] MEDS ORDERED: bisacodyL 10 MG SUPP PR PRN (12:13)
== END 2024-04-10 11:30 | disposition home or self-care (01) | DRG 785 ==
LOC: 4S1 07:52 → EDSTATUS 08:45 → 4E2 15:25